=== PATIENT | female | born 1980 | race American Indian/Alaskan Native ===

== ENCOUNTER 2017-12-25 05:26 | Inpatient (IN) | payer MEDICAID ==
[2017-12-25 05:26] VITALS: BMI 36.0
[2017-12-25] MEDS ORDERED: Sodium Chloride 0.9% 500 ML IV ONE (06:10)
--- NOTE | 2017-12-25 06:10 | C.PDOC ---
History Of Present Illness 37 year old female presents to the ED complaining of intermittent chest pain. She reports that pain started 1 week ago as epigastric pain radiating to lower chest, then to her back for the past week. Tonight felt chest pressure, right greater than left, and back pain. Also notes one episode of vomiting prior to arrival. Denies SOB. No recent travel. No use of oral contraceptives. Time Seen by Provider: 12/25/17 06:01 Chief Complaint (Nursing): Chest Pain History Per: Patient History/Exam Limitations: no limitations Onset/Duration Of Symptoms: Days Current Symptoms Are (Timing): Still Present Severity: Moderate Quality: Pressure Recent travel outside of the [place]: No Past Medical History Reviewed: Historical Data, Nursing Documentation, Vital Signs Vital Signs: Last Vital Signs Temp 97.6 F 12/25/17 05:40 Pulse 80 12/25/17 06:35 Resp 16 12/25/17 05:40 BP 115/75 12/25/17 05:40 Pulse Ox 100 12/25/17 06:45 - Medical History PMH: Anxiety, Asthma, Depression, HTN Denies: Chronic Kidney Disease Surgical History: Tonsillectomy - [facility] Procedures OTHER SKIN & SUBQ I D (06/23/14) TONSILLECTOMY (04/12/14) Family History: States: No Known Family Hx - Social History Hx Tobacco Use: No Hx Alcohol Use: Yes Hx Substance Use: No - Immunization History Hx Tetanus Toxoid Vaccination: No Hx Influenza Vaccination: No Hx Pneumococcal Vaccination: No Review Of Systems Constitutional: Negative for: Fever, Chills Cardiovascular: Positive for: Chest Pain. Negative for: Palpitations Respiratory: Negative for: Cough, Shortness of Breath, Pleuritic Pain Gastrointestinal: Positive for: Nausea, Vomiting. Negative for: Abdominal Pain , Diarrhea Genitourinary: Negative for: Dysuria, Hematuria Musculoskeletal: Positive for: Back Pain Skin: Negative for: Rash Neurological: Negative for: Headache, Dizziness Physical Exam - Physical Exam Appears: Non-toxic, No Acute Distress Skin: Normal Color, Warm, Dry Head: Atraumatic, Normacephalic Eye(s): bilateral: Normal Inspection, PERRL, EOMI Oral Mucosa: Moist Neck: Normal ROM, Supple Chest: Symmetrical, No Tenderness, Other (No reproducible chest wall tenderness) Cardiovascular: Rhythm Regular (Rate Regular) Respiratory: Normal Breath Sounds, No Rales, No Rhonchi, No Wheezing Gastrointestinal/Abdominal: Normal Exam, Soft Back: Normal Inspection, No CVA Tenderness Extremity: Normal ROM, No Deformity Neurological/Psych: Oriented x3, Normal Speech, Other (Anxious affect) Gait: Steady ED Course And Treatment - Laboratory Results Result Diagrams: 12/25/17 06:33 12/25/17 06:33 ECG: Interpreted By Me, Viewed By Me Interpretation Of ECG: Sinus rhythm at 72 bpm, left atrial enlargement, nonspecific ST-T waves changes. O2 Sat by Pulse Oximetry: 100 (RA) Pulse Ox Interpretation: Normal Progress Note: Pt remains stable , still with midstrtnal pain, no resp distress. Pt pending labs , s/o for disposition Disposition Counseled Patient/Family Regarding: Diagnosis, Need For Followup, Rx Given - Disposition Disposition Time: 06:08 Condition: STABLE Forms: [facility] (Kyrgyz) - Clinical Impression Clinical Impression: Chest pain - Scribe Statement The provider has reviewed the documentation as recorded by the Scribe (John Licea) All medical record entries made by the Scribe were at my direction and personally dictated by me. I have reviewed the chart and agree that the record accurately reflects my personal performance of the history, physical exam, medical decision making, and the department course for this patient. I have also personally directed, reviewed, and agree with the discharge instructions and disposition. Physician Patient Turnover Patient Signed Over To: Shannon Maddox Handoff Comments: pending labs and disposition
--- NOTE | 2017-12-25 06:12 | C.PDOC ---
History Of Present Illness 37 year old female presents to the ED complaining of intermittent chest pain. She reports that pain started 1 week ago as epigastric pain radiating to lower chest, then to her back for the past week. Tonight felt chest pressure, right greater than left, and back pain. Also notes one episode of vomiting prior to arrival. Denies SOB. No recent travel. No use of oral contraceptives. Time Seen by Provider: 12/25/17 06:01 Chief Complaint (Nursing): Chest Pain History Per: Patient History/Exam Limitations: no limitations Onset/Duration Of Symptoms: Days Current Symptoms Are (Timing): Still Present Quality: Pressure Recent travel outside of the [place]: No Past Medical History Reviewed: Historical Data, Nursing Documentation, Vital Signs Vital Signs: Last Vital Signs Temp 97.6 F 12/25/17 05:40 Pulse 79 12/25/17 05:40 Resp 16 12/25/17 05:40 BP 115/75 12/25/17 05:40 Pulse Ox 100 12/25/17 05:40 - Medical History PMH: Anxiety, Asthma, Depression, HTN Denies: Chronic Kidney Disease Surgical History: Tonsillectomy - [facility] Procedures OTHER SKIN & SUBQ I D (06/23/14) TONSILLECTOMY (04/12/14) Family History: States: No Known Family Hx - Social History Hx Tobacco Use: No Hx Alcohol Use: Yes Hx Substance Use: No - Immunization History Hx Tetanus Toxoid Vaccination: No Hx Influenza Vaccination: No Hx Pneumococcal Vaccination: No Review Of Systems Constitutional: Negative for: Fever, Chills ENT: Negative for: Ear Pain, Throat Pain Cardiovascular: Positive for: Chest Pain Respiratory: Negative for: Cough, Shortness of Breath Gastrointestinal: Negative for: Nausea, Vomiting, Abdominal Pain, Diarrhea Musculoskeletal: Positive for: Back Pain Skin: Negative for: Rash Neurological: Negative for: Headache Physical Exam - Physical Exam Appears: Non-toxic, No Acute Distress Skin: Normal Color, Warm, Dry Head: Atraumatic, Normacephalic Eye(s): bilateral: Normal Inspection, PERRL, EOMI Oral Mucosa: Moist Chest: Symmetrical, Other (No reproducible chest wall tenderness ) Cardiovascular: Rhythm Regular (Rate Regular) Respiratory: Normal Breath Sounds, No Rales, No Rhonchi, No Wheezing Gastrointestinal/Abdominal: Normal Exam, Soft, No Tenderness Back: Normal Inspection Extremity: Normal ROM, No Deformity Neurological/Psych: Oriented x3, Normal Speech Gait: Steady ED Course And Treatment ECG: Interpreted By Me, Viewed By Me Interpretation Of ECG: Sinus rhythm at 72 bpm, left atrial enlargement, nonspecific ST-T waves changes. O2 Sat by Pulse Oximetry: 100 (RA) Pulse Ox Interpretation: Normal Disposition - Disposition Forms: [facility] (Sinhala) - Scribe Statement The provider has reviewed the documentation as recorded by the Scribe All medical record entries made by the Scribe were at my direction and personally dictated by me. I have reviewed the chart and agree that the record accurately reflects my personal performance of the history, physical exam, medical decision making, and the department course for this patient. I have also personally directed, reviewed, and agree with the discharge instructions and disposition.
[2017-12-25] MEDS ORDERED: Sodium Chloride 0.9% 250 ML IV ONE (06:32)
[2017-12-25 06:37] LABS: BASO % 0.6 % (0.0-2.0); EOS # 0.2 K/uL (0.0-0.7); EOS % 2.9 % (0.0-4.0); HEMOGLOBIN 11.8 g/dL (11.0-16.0); LYMPH # 1.6 K/uL (1.0-4.3); LYMPH % 28.3 % (20.0-40.0); MEAN CELL VOLUME 89.3 fL (81.0-99.0); MEAN CORPUSCULAR HEMOGLOBIN 29.7 pg (27.0-31.0); MEAN CORPUSCULAR HGB CONC 33.3 g/dL (33.0-37.0); MEAN PLATELET VOLUME 7.6 fL (7.2-11.7); MONO # 0.6 K/uL (0.0-0.8); MONO % 11.1 % (0.0-10.0); NEUT # 3.3 K/uL (1.8-7.0); NEUT % 57.1 % (50.0-75.0); NRBC % 0.1 % (0.0-2.0); RBC 3.98 Mil/uL (3.80-5.20); RED CELL DISTRIBUTION WIDTH 12.8 % (11.5-14.5); WHITE BLOOD COUNT 5.8 K/uL (4.8-10.8)
[2017-12-25 06:48] LABS: ALBUMIN 3.8 g/dL (3.5-5.0); ALT/SGPT 19 U/L (9-52); AST/SGOT 15 U/L (14-36); BLOOD UREA NITROGEN 14 mg/dL (7-17); CALCIUM 8.3 mg/dl (8.6-10.4); GFR AFRICAN-AMERICAN > 60; GFR NON-AFRICAN AMERICAN > 60
[2017-12-25] MEDS ORDERED: Morphine 4 MG/ML VIAL ONE ×2 (07:45→15:27)
--- NOTE | 2017-12-25 07:52 | RAD ---
Chest x-ray single frontal view History: Chest pain. Comparison: 06/04/2016 Findings: No focal infiltrate or effusion. Heart size within normal limits. Impression: No focal infiltrate or effusion.
[2017-12-25] MEDS ORDERED: Iodixanol 320 MG/ML 100 ML BOTTLE IV ONE (07:57)
[2017-12-25 08:54] LABS: HCG,QUALITATIVE URINE NEGATIVE (NEGATIVE)
[2017-12-25 09:04] LABS: SQUAMOUS EPITHIAL 5 /hpf (0-5); URINE BACTERIA OCC (<OCC); URINE BILIRUBIN NEGATIVE (NEGATIVE); URINE BLOOD 1+ (NEGATIVE); URINE CLARITY Hazy (Clear); URINE COLOR Yellow (YELLOW); URINE GLUCOSE (UA) NORMAL (Normal); URINE NITRATE POSITIVE (NEGATIVE); URINE PROTEIN 1+ mg/dL (NEGATIVE); URINE UROBILINOGEN NORMAL mg/dL (0.2-1.0)
[2017-12-25 09:08] LABS: URINE LEUKOCYTE ESTERASE 1+ Leu/uL (Negative)
--- NOTE | 2017-12-25 09:36 | CT ---
CT chest pulmonary angiogram History: Chest pain. Elevated D-dimer. Comparison: None available. Technique: Multiple contiguous axial images were performed through the chest utilizing pulmonary embolism protocol with the use of intravenous contrast. Subsequently, sagittal and coronal reformatted images were obtained. In addition, coronal and sagittal MIPS reformatted images were obtained. This CT exam was performed using one or more of the following dose reduction techniques: Automated exposure control, adjustment of the mA and/or kV according to patient size, and/or use of iterative reconstruction technique. Findings: Study somewhat limited secondary to suboptimal contrast timing bolus as well as large field of view and patient motion. No evidence of gross central acute pulmonary embolism. More limited evaluation of the segmental and subsegmental branches. Right lung: Grossly clear. Left lung: Grossly clear. Trachea thru central airways are patent. No significant axillary adenopathy. Heterogeneity of the thyroid. No significant axillary adenopathy. No pleural or pericardial effusion. Liver and gallbladder appear preserved. Spleen appears preserved. Adrenal glands appear preserved. Pancreas appears preserved. Kidneys appear preserved. Osseous structures are preserved. Impression: Study somewhat limited secondary to suboptimal contrast timing bolus as well as large field of view and patient motion. No evidence of gross central acute pulmonary embolism. More limited evaluation of the segmental and subsegmental branches.
[2017-12-25] MEDS ORDERED: HYDROmorphone 0.5 mg/0.5 ml ISec IVP STA (09:38)
[2017-12-25] MEDS ORDERED: HYDROmorphone 0.5 mg/0.5 ml ISec ONE (09:49)
[2017-12-25] MEDS ORDERED: Dextrose 50% SYRINGE Inj (50 ml) IV PRN (10:43)
[2017-12-25] MEDS ORDERED: Glucagon Recombinant 1 mg Inj IM PRN (10:43)
--- NOTE | 2017-12-25 11:18 | CP.PCM.HP ---
<Luis Kirk - Last Filed: 12/25/17 19:34> History of Present Illness - History of Present Illness History of Present Illness: PGY1 H+P for Dr. Viridiana Ibarra CC: Abdominal, chest, and back pain A 37 year old AA female with a PMH of DM2, HTN, Narcolepsy, and Asthma, and possible SCT or SCD presents to the ED today morning with abdominal pain radiating to her chest and back. The patient states that she woke up at 4am with abdominal and chest pain that was unlike ever before. She states that on Tuesday, the pain was worsening and by Tuesday it was at it's worst, coming and going intermittently. She states that she's had abdominal pain for months and has been seeing a GI doctor, Dr. Briones, for it who gave her Zantac and scheduled for an EGD soon. The patient states that she drank 1/2 cup of Guinness on Tuesday afternoon and that it may have prompted her worsening abdominal pain. She describes her abdominal pain as "her stomach eating itself" , and currently her pain is an 8/10 from a 10/10 from onset at 4am. She also describes an associated dyspnea when she lays down that does not get better with different positioning. She states that she last used her Albuterol last night due to her SOB when laying down. The patient has come to [facility] before for similar episodes but does not remember her work up for diagnosis. Her last bowel movement was last night, and she was able to eat 3 meals on Tuesday and states that she took all her medications Tuesday night. On ROS, she admits to sleep changes secondary to pain, SOB, palpitations (this morning) , orthopnea, chest pain, decrease in appetite, vomiting (secondary to oral contrast given in ED), diffuse abdominal pain, urinary frequency, urinary urgency, joint pains (bilateral knees and elbows), and dizziness. She denies headache, vision/hearing changes, cough, diarrhea, constipation, rashes, polyuria, depression or anxiety. US in the ED showed gallstones. 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 Call [facility] ) and [facility] ) Adderall 30 mg qd and 10 mg TID (total 60mg) Zantac PO qd Ambien 10 mg qd Albuterol PRN (last used Tuesday night, uses it on a monthly basis) Provigil 200 mg TID Metformin 500 BID Atenolol 100 mg qd Hyzaar qd Present on Admission - Present on Admission Any Indicators Present on Admission: No Review of Systems - Review of Systems All systems: reviewed and no additional remarkable complaints except (as HPI) Past Patient History - Infectious Disease Hx of Infectious Diseases: None - Past Medical History & Family History Past Medical History?: Yes - Past Social History Smoking Status: Never Smoked - CARDIAC Hx Hypertension: Yes - PULMONARY Hx Asthma: Yes - NEUROLOGICAL Hx Neurological Disorder: Yes Other/Comment: NARCOLEPSY - HEENT Other/Comment: CHRONIC TONSILLITIS; Wears contacts - RENAL Hx Chronic Kidney Disease: No - ENDOCRINE/METABOLIC Hx Endocrine Disorders: Yes Hx Diabetes Mellitus Type 2: Yes Other/Comment: pre DM - GENITOURINARY/GYNECOLOGICAL Hx Urinary Tract Infection: Yes - PSYCHIATRIC Hx Anxiety: Yes Hx Depression: Yes Hx Substance Use: No - SURGICAL HISTORY Hx Tonsillectomy: Yes - ANESTHESIA Hx Anesthesia: Yes Hx Anesthesia Reactions: No Hx Malignant Hyperthermia: No Meds Allergies/Adverse Reactions: Allergies Allergy/AdvReac Type Severity Reaction Status Date / Time latex Allergy Verified 12/25/17 05:47 Physical Exam - Constitutional Appears: Non-toxic, Other (Obese, lethargic (recently given dilaudid) ) - Head Exam Head Exam: ATRAUMATIC, NORMOCEPHALIC - Eye Exam Eye Exam: EOMI, Normal appearance - ENT Exam ENT Exam: Mucous Membranes Moist - Neck Exam Neck exam: Positive for: Full Rom. Negative for: Lymphadenopathy, Thyromegaly - Respiratory Exam Respiratory Exam: Clear to Auscultation Bilateral, NORMAL BREATHING PATTERN. absent: Accessory Muscle Use, Rales, Rhonchi, Wheezes, Respiratory Distress - Cardiovascular Exam Cardiovascular Exam: REGULAR RHYTHM, +S1, +S2. absent: Diastolic murmur, JVD, Systolic Murmur - GI/Abdominal Exam GI & Abdominal Exam: Guarding (epigastric), Normal Bowel Sounds, Soft, Tenderness (epigastric). absent: Distended, Firm, Hernia, Rebound, Rigid Additional comments: Difficult to truly assess due to patient recently being given pain medicine at time of exam. - Rectal Exam Additional comments: Heme occult negative. - Extremities Exam Extremities exam: Positive for: pedal pulses present. Negative for: calf tenderness, pedal edema - Neurological Exam Neurological exam: Alert, Oriented x3 Additional comments: lethargic but believed to be secondary to dilaudid being given. ED doctor/ nursing staff reported lethargy started after administration of medication. - Psychiatric Exam Additional comments: lethargic. - Skin Skin Exam: Dry, Warm Results - Vital Signs Recent Vital Signs: Last Vital Signs Temp 97.6 F 12/25/17 05:40 Pulse 80 12/25/17 06:35 Resp 16 12/25/17 05:40 BP 115/75 12/25/17 05:40 Pulse Ox 100 12/25/17 07:08 - Labs Result Diagrams: 12/25/17 06:33 12/25/17 06:33 Labs: Laboratory Results - last 24 hr 12/25/17 12/25/17 12/25/17 06:33 06:33 06:33 WBC 5.8 RBC 3.98 Hgb 11.8 Hct 35.6 MCV 89.3 MCH 29.7 MCHC 33.3 RDW 12.8 Plt Count 256 MPV 7.6 Neut % (Auto) 57.1 Lymph % (Auto) 28.3 Motley % (Auto) 11.1 H Eos % (Auto) 2.9 Baso % (Auto) 0.6 Neut # (Auto) 3.3 Lymph # (Auto) 1.6 Motley # (Auto) 0.6 Eos # (Auto) 0.2 Baso # (Auto) 0.0 D-Dimer, Quantitative 411 H Sodium 134 Potassium 3.3 L Chloride 95 L Carbon Dioxide 31 H Anion Gap 12 BUN 14 Creatinine 0.7 Est GFR ( Amer) > 60 Est GFR (Non-Af Amer) > 60 Random Glucose 120 H Calcium 8.3 L Total Bilirubin 0.3 AST 15 ALT 19 Alkaline Phosphatase 77 Troponin I < 0.0120 Total Protein 7.8 Albumin 3.8 Globulin 4.0 H Albumin/Globulin Ratio 1.0 Beta HCG, Quant Urine Color Urine Clarity Urine pH Ur Specific Eldridge Urine Protein Urine Glucose (UA) Urine Ketones Urine Blood Urine Nitrate Urine Bilirubin Urine Urobilinogen Ur Leukocyte Esterase Urine WBC (Auto) Urine RBC (Auto) Ur Squamous Epith Cells Urine Bacteria Urine HCG, Qual 12/25/17 12/25/17 07:47 08:44 WBC RBC Hgb Hct MCV MCH MCHC RDW Plt Count MPV Neut % (Auto) Lymph % (Auto) Motley % (Auto) Eos % (Auto) Baso % (Auto) Neut # (Auto) Lymph # (Auto) Motley # (Auto) Eos # (Auto) Baso # (Auto) D-Dimer, Quantitative Sodium Potassium Chloride Carbon Dioxide Anion Gap BUN Creatinine Est GFR ( Amer) Est GFR (Non-Af Amer) Random Glucose Calcium Total Bilirubin AST ALT Alkaline Phosphatase Troponin I Total Protein Albumin Globulin Albumin/Globulin Ratio Beta HCG, Quant < 2.39 Urine Color Yellow Urine Clarity Hazy Urine pH 5.0 Ur Specific Eldridge 1.030 Urine Protein 1+ H Urine Glucose (UA) Normal Urine Ketones Trace Urine Blood 1+ H Urine Nitrate Positive H Urine Bilirubin Negative Urine Urobilinogen Normal Ur Leukocyte Esterase 1+ H Urine WBC (Auto) 10 H Urine RBC (Auto) 8 H Ur Squamous Epith Cells 5 Urine Bacteria Occ H Urine HCG, Qual Negative Assessment & Plan - Assessment and Plan (Free Text) Plan: Chest/Abdominal Pain - possible Sickle Cell Crisis Believed to possibly due to sickle cell crisis since patient's parents both were positive for the sickle cell trait. Brother secondary to sickle cell at age 21. Patient has never been worked up for sickle cell. Heme/Onc consulted, Dr. Isaak Mendoza Cardio consulted, Dr. Bhatia Chest CTA - Study somewhat limited secondary to suboptimal contrast timing bolus as well as large field of view and patient motion. No evidence of gross central acute pulmonary embolism. More limited evaluation of the segmental and subsegmental branches. Abdominal US - 1.) Prominent liver with diffuse increased echogenicity of the hepatic parenchymal cortex suggestive for fatty infiltration versus hepatic parenchymal disease. Clinical correlation. 2.) Cholelithiasis. 3.)Somewhat limited evaluation of the pancreas. Transvag US - Fibroid uterus. Prominent endometrium measuring up to 1.2 centimeters. Small amount of free fluid within the pelvic cul-de-sac. ECHO f/u Alcohol <10 Amylase 65 Lipase 23 Trop negative x3 Lactic Acid 1.2 TSH f/u Free T4 f/u Hepatitis Panel f/u HIV screen f/u Mag f/u Phos f/u Hemoglobinopathy eval f/u Peripheral Smear f/u Hemoglobin Electrophoresis f/u Morphine 2mg IVP q6h PRN for mod. pain Morphine 4mg IVP q6h PRN for severe pain Zofran 4mg IVP q6h PRN NS @150mL/hr x 1 L, then NS @100mL/hr UTI UA - protein 1+, Blood 1+, Nitrates positive, Leuko Olive 1+, Bacteria Occ Urine Culture - f/u Rocephin 1gm IVPB q24h Florastor 250mg PO BID DM2 ISS ACHS- high HgbA1c - f/u Holding home Metformin due to possible side effect of lactic acidosis in setting of possible sickle cell crisis. HTN Atenolol 100mg daily Losartan 100mg PO daily Holding home HCTZ due to hx of diabetes and dehydration in setting of possible sickle cell crisis. Narcolepsy Need to call pharmacy and confirm medications for Narcolepsy. See medications listed below Asthma Duonebs 3mL q6h prn Prophylactic Care DVT - score 1 - SCDs only - anticoag not indicated GI - Pepcid 20mg PO daily Heart Healthy, Na+ 2g, Carbohydrate Consistent diet Call [facility] ) and [facility] ) - believed medications and dosages Adderall 30 mg qd and 10 mg TID (total 60mg) Zantac PO qd Ambien 10 mg qd Albuterol PRN (last used Tuesday night, uses it on a monthly basis) Provigil 200 mg TID Metformin 500 BID Atenolol 100 mg qd Hyzaar (losartan/HCTZ) qd Case discussed with Dr. Viridiana Kirk PGY1 <Osvaldo Ibarra - Last Filed: 12/25/17 21:15> Results - Vital Signs Recent Vital Signs: Last Vital Signs Temp 98.4 F 12/25/17 20:00 Pulse 60 12/25/17 20:00 Resp 16 12/25/17 20:00 BP 124/77 12/25/17 20:00 Pulse Ox 100 12/25/17 20:00 - Labs Result Diagrams: 12/25/17 06:33 12/25/17 06:33 Labs: Laboratory Results - last 24 hr 12/25/17 12/25/17 12/25/17 06:33 06:33 06:33 WBC 5.8 RBC 3.98 Hgb 11.8 Hct 35.6 MCV 89.3 MCH 29.7 MCHC 33.3 RDW 12.8 Plt Count 256 MPV 7.6 Neut % (Auto) 57.1 Lymph % (Auto) 28.3 Motley % (Auto) 11.1 H Eos % (Auto) 2.9 Baso % (Auto) 0.6 Neut # (Auto) 3.3 Lymph # (Auto) 1.6 Motley # (Auto) 0.6 Eos # (Auto) 0.2 Baso # (Auto) 0.0 D-Dimer, Quantitative 411 H Sodium 134 Potassium 3.3 L Chloride 95 L Carbon Dioxide 31 H Anion Gap 12 BUN 14 Creatinine 0.7 Est GFR ( Amer) > 60 Est GFR (Non-Af Amer) > 60 POC Glucose (mg/dL) Random Glucose 120 H Lactic Acid Calcium 8.3 L Total Bilirubin 0.3 AST 15 ALT 19 Alkaline Phosphatase 77 Troponin I < 0.0120 Total Protein 7.8 Albumin 3.8 Globulin 4.0 H Albumin/Globulin Ratio 1.0 Amylase Lipase Beta HCG, Quant Urine Color Urine Clarity Urine pH Ur Specific Eldridge Urine Protein Urine Glucose (UA) Urine Ketones Urine Blood Urine Nitrate Urine Bilirubin Urine Urobilinogen Ur Leukocyte Esterase Urine WBC (Auto) Urine RBC (Auto) Ur Squamous Epith Cells Urine Bacteria Urine HCG, Qual Alcohol, Quantitative Influenza Typ A,B (EIA) 12/25/17 12/25/17 12/25/17 07:47 08:44 11:31 WBC RBC Hgb Hct MCV MCH MCHC RDW Plt Count MPV Neut % (Auto) Lymph % (Auto) Motley % (Auto) Eos % (Auto) Baso % (Auto) Neut # (Auto) Lymph # (Auto) Motley # (Auto) Eos # (Auto) Baso # (Auto) D-Dimer, Quantitative Sodium Potassium Chloride Carbon Dioxide Anion Gap BUN Creatinine Est GFR ( Amer) Est GFR (Non-Af Amer) POC Glucose (mg/dL) Random Glucose Lactic Acid Calcium Total Bilirubin AST ALT Alkaline Phosphatase Troponin I < 0.0120 Total Protein Albumin Globulin Albumin/Globulin Ratio Amylase 65 Lipase 23 Beta HCG, Quant < 2.39 Urine Color Yellow Urine Clarity Hazy Urine pH 5.0 Ur Specific Eldridge 1.030 Urine Protein 1+ H Urine Glucose (UA) Normal Urine Ketones Trace Urine Blood 1+ H Urine Nitrate Positive H Urine Bilirubin Negative Urine Urobilinogen Normal Ur Leukocyte Esterase 1+ H Urine WBC (Auto) 10 H Urine RBC (Auto) 8 H Ur Squamous Epith Cells 5 Urine Bacteria Occ H Urine HCG, Qual Negative Alcohol, Quantitative < 10 Influenza Typ A,B (EIA) 12/25/17 12/25/17 12/25/17 12:49 13:44 15:34 WBC RBC Hgb Hct MCV MCH MCHC RDW Plt Count MPV Neut % (Auto) Lymph % (Auto) Motley % (Auto) Eos % (Auto) Baso % (Auto) Neut # (Auto) Lymph # (Auto) Motley # (Auto) Eos # (Auto) Baso # (Auto) D-Dimer, Quantitative Sodium Potassium Chloride Carbon Dioxide Anion Gap BUN Creatinine Est GFR ( Amer) Est GFR (Non-Af Amer) POC Glucose (mg/dL) 143 H Random Glucose Lactic Acid 1.2 Calcium Total Bilirubin AST ALT Alkaline Phosphatase Troponin I Total Protein Albumin Globulin Albumin/Globulin Ratio Amylase Lipase Beta HCG, Quant Urine Color Urine Clarity Urine pH Ur Specific Eldridge Urine Protein Urine Glucose (UA) Urine Ketones Urine Blood Urine Nitrate Urine Bilirubin Urine Urobilinogen Ur Leukocyte Esterase Urine WBC (Auto) Urine RBC (Auto) Ur Squamous Epith Cells Urine Bacteria Urine HCG, Qual Alcohol, Quantitative Influenza Typ A,B (EIA) Negative for flu a/b 12/25/17 12/25/17 16:23 17:52 WBC RBC Hgb Hct MCV MCH MCHC RDW Plt Count MPV Neut % (Auto) Lymph % (Auto) Motley % (Auto) Eos % (Auto) Baso % (Auto) Neut # (Auto) Lymph # (Auto) Motley # (Auto) Eos # (Auto) Baso # (Auto) D-Dimer, Quantitative Sodium Potassium Chloride Carbon Dioxide Anion Gap BUN Creatinine Est GFR ( Amer) Est GFR (Non-Af Amer) POC Glucose (mg/dL) 110 Random Glucose Lactic Acid Calcium Total Bilirubin AST ALT Alkaline Phosphatase Troponin I < 0.0120 Total Protein Albumin Globulin Albumin/Globulin Ratio Amylase Lipase Beta HCG, Quant Urine Color Urine Clarity Urine pH Ur Specific Eldridge Urine Protein Urine Glucose (UA) Urine Ketones Urine Blood Urine Nitrate Urine Bilirubin Urine Urobilinogen Ur Leukocyte Esterase Urine WBC (Auto) Urine RBC (Auto) Ur Squamous Epith Cells Urine Bacteria Urine HCG, Qual Alcohol, Quantitative Influenza Typ A,B (EIA) Attending/Attestation - Attestation I have personally seen and examined this patient.: Yes I have fully participated in the care of the patient.: Yes I have reviewed all pertinent clinical information: Yes Notes (Text): 12/25/17 21:10 Patient was seen shortly after resident in Emergency Room 8A. History, Physical, Assessment and Plan were gone over with the resident. U/S Abdomen/Pelvis (done as patient already received contrast for CT Angio Chest and ER did NOT get CT Abdomen/Pelvis with the CT Angio Chest) showed the following: Fibroid Uterus Prominent Endometrium Prominent Liver with diffuse increased echogenecity of the hepatic parenchymal cortex suggestive of fatty infiltration vs hepatic parenchymal disease Medicine Team please do the followin). Obtain CT Abdomen/Pelvis with PO and IV contrast should the Abdominal Pain persist by morning of 12/26/17. 2). Call the above Pharmacies (as they were closed today) to confirm the patient 's medications especially for her history of Narcolepsy (Adderell and Provigil) and once confirmed then order the Adderell and Provigil Patient's approved contacts are her [id number] Jackelyn ([phone]) who was present at the time of my exam and her Brother Nomi [phone]. Osvaldo Ibarra D.O.
[2017-12-25 11:50] LABS: AMYLASE 65 U/L (30-110); LIPASE 23 U/L (23-300)
[2017-12-25] MEDS ORDERED: Sodium Chloride 0.9% 1,000 ML IV ONE (11:51)
[2017-12-25] MEDS ORDERED: Sodium Chloride 0.9% 1,000 ML ONE ×2 (12:19→19:50)
[2017-12-25] MEDS ORDERED: cefTRIAXone IV 1 gm in Dextros 50 ML IVPB ONE (12:19)
--- NOTE | 2017-12-25 12:39 | US ---
Abdominal ultrasound History: Abdominal pain. Comparison: None available. Technique: Real-time sonography was performed through the abdomen. Findings: Liver: Prominent. 18.4 centimeters length. Increased echogenicity of the hepatic parenchymal cortex suggestive for fatty infiltration versus hepatic parenchymal disease. Correlation. Gallbladder: Cholelithiasis with gallbladder calculus measuring up to 1.6 centimeters. Normal gallbladder wall thickness of 2 millimeters. Negative sonographic Armstrong's sign. Common bile duct measures 4.8 millimeters, within normal limits. Limited evaluation of the pancreas. Spleen measures 6.5 centimeters in length, within normal limits. Visualized aorta and IVC are preserved. Right kidney: 10.5 x 4.9 x 4.9 centimeters. No calculi or hydronephrosis. Left Kidney: 10.5 x 5.7 x 5.8 centimeters. No calculi or hydronephrosis. Impression: Prominent liver with diffuse increased echogenicity of the hepatic parenchymal cortex suggestive for fatty infiltration versus hepatic parenchymal disease. Clinical correlation. Cholelithiasis. Somewhat limited evaluation of the pancreas.
--- NOTE | 2017-12-25 12:42 | US ---
Pelvic ultrasound History: Pelvic pain. Comparison: None available. Technique: Real-time sonography was performed through the pelvis utilizing transabdominal and transvaginal techniques. Findings: Uterus: 8.2 x 4.9 x 5.6 centimeters. Heterogeneous echotexture. Retroverted. Heterogeneous lesions within the uterus suggestive for possible fibroid lesions including a subserosal lesion measuring 1.0 x 0.7 x 0.9 centimeters and a submucosal lesion measuring 2.3 x 2.3 x 2.3 centimeters. Prominent endometrium measuring up to 1.2 centimeters. Small amount of free fluid within the pelvic cul-de-sac. Right ovary: 3.9 x 1.5 x 3.6 centimeters. Normal. Left ovary: 2.2 x 1.9 x 1.8 centimeters. Normal flow. Impression: Fibroid uterus. Prominent endometrium measuring up to 1.2 centimeters. Small amount of free fluid within the pelvic cul-de-sac.
[2017-12-25] MEDS: (Novolin R) Insulin Human Regular 100 units/ml vial SC SCH ×3 (13:47→22:00)
[2017-12-25] MEDS ORDERED: Albuterol-Ipratrop 3 mg / 0.5 (3 ml) UD INH PRN (14:00)
[2017-12-25] MEDS ORDERED: Morphine 4 MG/ML VIAL IVP PRN ×2 (14:53→14:54)
[2017-12-25] MEDS: Saccharomyces Boulardi 250 mg Cap PO SCH (17:15)
[2017-12-25] MEDS: Sodium Chloride 0.9% 1,000 ML IV SCH (19:15)
[2017-12-26] MEDS ORDERED: Sodium Chloride 0.9% 1,000 ML ONE (05:15)
[2017-12-26 06:38] LABS: MCH 28.8 pg (27.0-33.0); MCV 90.4 fL (80.0-100.0)
[2017-12-26] MEDS: Sodium Chloride 0.9% 1,000 ML IV SCH ×3 (07:21→22:20)
[2017-12-26] MEDS: (Novolin R) Insulin Human Regular 100 units/ml vial SC SCH ×4 (08:00→22:16)
[2017-12-26 08:30] LABS: HDL CHOLESTEROL 46 mg/dL (30-70); MAGNESIUM 1.8 mg/dL (1.6-2.3)
[2017-12-26 08:40] LABS: LDL CHOLESTEROL 80 mg/dL (0-129)
[2017-12-26 09:01] LABS: HEPATITIS B SURFACE AG Negative (NEGATIVE)
[2017-12-26 09:07] LABS: HEPATITIS A IGM NEGATIVE (NEGATIVE); HEPATITIS B CORE AB NEGATIVE (NEGATIVE)
[2017-12-26 09:18] LABS: HEPATITIS C ANTIBODY NEGATIVE (NEGATIVE)
[2017-12-26] MEDS: Saccharomyces Boulardi 250 mg Cap PO SCH ×2 (10:23→20:48)
[2017-12-26 11:21] LABS: SICKLE CELL SCREEN NEGATIVE (NEGATIVE)
[2017-12-26 14:27] LABS: BASO # 0.1 K/uL (0.0-0.2); BASO % 0.9 % (0.0-2.0); EOS % 0.2 % (0.0-4.0); HEMOGLOBIN 11.1 g/dL (11.0-16.0); LYMPH # 1.3 K/uL (1.0-4.3); LYMPH % 16.2 % (20.0-40.0); MEAN CELL VOLUME 89.5 fL (81.0-99.0); MEAN CORPUSCULAR HEMOGLOBIN 29.6 pg (27.0-31.0); MEAN CORPUSCULAR HGB CONC 33.1 g/dL (33.0-37.0); MEAN PLATELET VOLUME 8.6 fL (7.2-11.7); MONO # 0.8 K/uL (0.0-0.8); MONO % 9.4 % (0.0-10.0); NEUT % 73.3 % (50.0-75.0); NRBC % 0.1 % (0.0-2.0); PLATELET COUNT 229 K/uL (130-400); RBC 3.75 Mil/uL (3.80-5.20); RED CELL DISTRIBUTION WIDTH 12.9 % (11.5-14.5); WHITE BLOOD COUNT 8.2 K/uL (4.8-10.8)
[2017-12-26 15:09] LABS: ALBUMIN 3.5 g/dL (3.5-5.0); ALT/SGPT 27 U/L (9-52); AST/SGOT 20 U/L (14-36); BLOOD UREA NITROGEN 9 mg/dL (7-17); CALCIUM 8.3 mg/dl (8.6-10.4); GFR AFRICAN-AMERICAN > 60; GFR NON-AFRICAN AMERICAN > 60
--- NOTE | 2017-12-26 15:19 | CP.PCM.PN ---
<Gracie John - Last Filed: 12/26/17 15:14> Subjective - Date & Time of Evaluation Date of Evaluation: 12/26/17 Time of Evaluation: 09:00 - Subjective Subjective: Medicine Note for Hospitalist Service - Dr. Ott Patient was seen and examined at bedside. Patient reports her chest pain has resolved. However she continues with the bandlike abdominal pain, associated with nausea. She attempted to eat breakfast but admitted to abdominal pain after eating. Denied, fever, chills, headache, chest pain, SOB, n/v/d/c, or urinary symptoms. Objective - Vital Signs/Intake and Output Vital Signs (last 24 hours): Temp Pulse Resp BP Pulse Ox 98.7 F 54 L 18 125/67 100 12/26/17 12:39 12/26/17 12:39 12/26/17 12:39 12/26/17 12:39 12/26/17 12:39 - Medications Medications: Current Medications Albuterol/Ipratropium (Duoneb 3 Mg/0.5 Mg (3 Ml) Ud) 3 ml INH RQ6 PRN PRN Reason: Shortness of Breath Last Admin: 12/26/17 04:10 Dose: 3 ml Atenolol (Tenormin) 100 mg PO HS [facility] Last Admin: 12/25/17 22:00 Dose: Not Given Dextrose (Dextrose 50% Inj) 0 ml IV STAT PRN; Protocol PRN Reason: Hypoglycemia Protocol Dextrose (Glutose 15) 0 gm PO ONCE PRN; Protocol PRN Reason: Hypoglycemia Protocol Docusate Sodium (Colace) 100 mg PO BID [facility] Last Admin: 12/26/17 10:23 Dose: 100 mg Famotidine (Pepcid) 20 mg PO DAILY [facility] Last Admin: 12/26/17 10:23 Dose: 20 mg Glucagon (Glucagen Diagnostic Kit) 0 mg IM STAT PRN; Protocol PRN Reason: Hypoglycemia Protocol Ceftriaxone Sodium 1 gm/ (Sodium Chloride) 100 mls @ 100 mls/hr IVPB Q24H [facility] Last Admin: 12/26/17 13:18 Dose: 100 mls/hr Dextrose (Dextrose 5% In Water 1000 Ml) 1,000 mls @ 0 mls/hr IV .Q0M PRN; Protocol; Per Protocol PRN Reason: Hypoglycemia Protocol Sodium Chloride (Sodium Chloride 0.9%) 1,000 mls @ 100 mls/hr IV .Q10H [facility] Last Admin: 12/26/17 07:21 Dose: 100 mls/hr Insulin Human Regular (Novolin R) 0 unit SC ACHS [facility] PRN Reason: Protocol Last Admin: 12/26/17 12:44 Dose: Not Given Losartan Potassium (Cozaar) 100 mg PO DAILY [facility] Last Admin: 12/26/17 10:23 Dose: 100 mg Morphine Sulfate (Morphine) 2 mg IVP Q6H PRN PRN Reason: Pain, moderate (4-7) Last Admin: 12/25/17 20:04 Dose: 2 mg Morphine Sulfate (Morphine) 4 mg IVP Q6H PRN PRN Reason: Pain, severe (8-10) Last Admin: 12/25/17 15:24 Dose: 4 mg Ondansetron HCl (Zofran Inj) 4 mg IVP Q6H PRN PRN Reason: Nausea/Vomiting Last Admin: 12/25/17 20:04 Dose: 4 mg Potassium Chloride (K-Dur 20 Meq Er Tab) 40 meq PO ONCE ONE Stop: 12/26/17 15:31 Potassium Phos/Sodium Phos (Neutra-Phos) 1 pkt PO BID [facility] Stop: 12/27/17 13:01 Saccharomyces Boulardii (Florastor) 250 mg PO BID [facility] Last Admin: 12/26/17 10:23 Dose: 250 mg - Labs Labs: 12/26/17 11:11 12/26/17 08:02 - Additional Findings Additional findings: - Constitutional Appears: Non-toxic, Other (Obese, lethargic (recently given dilaudid) ) - Head Exam Head Exam: ATRAUMATIC, NORMOCEPHALIC - Eye Exam Eye Exam: EOMI, Normal appearance - ENT Exam ENT Exam: Mucous Membranes Moist - Neck Exam Neck exam: Positive for: Full Rom. Negative for: Lymphadenopathy, Thyromegaly - Respiratory Exam Respiratory Exam: Clear to Auscultation Bilateral, NORMAL BREATHING PATTERN. absent: Accessory Muscle Use, Rales, Rhonchi, Wheezes, Respiratory Distress - Cardiovascular Exam Cardiovascular Exam: REGULAR RHYTHM, +S1, +S2. absent: Diastolic murmur, JVD, Systolic Murmur - GI/Abdominal Exam GI & Abdominal Exam: Normal Bowel Sounds, Soft, Tenderness (epigastric and RUQ) . absent: Distended, Firm, Hernia, Rebound, Rigid Additional comments: NEGATIVE CVA TENDERNESS - Rectal Exam Additional comments: Heme occult negative. - Extremities Exam Extremities exam: Positive for: pedal pulses present. Negative for: calf tenderness, pedal edema - Neurological Exam Neurological exam: Alert, Oriented x3 Additional comments: - Skin Skin Exam: Dry, Warm Assessment and Plan - Assessment and Plan (Free Text) Plan: Abdominal Pain Hx of H.pylori x 5 years ago Amylase 65 Lipase 23 Hepatitis Panel - negative HIV screen - negative F/U abdominal and pelvis CT with PO and IV contrast Imaging: Abdominal US - 1.) Prominent liver with diffuse increased echogenicity of the hepatic parenchymal cortex suggestive for fatty infiltration versus hepatic parenchymal disease. Clinical correlation. 2.) Cholelithiasis. 3.)Somewhat limited evaluation of the pancreas. Transvaginal US - Fibroid uterus. Prominent endometrium measuring up to 1.2 centimeters. Small amount of free fluid within the pelvic cul-de-sac. Chest Pain r/o ACS Less likely Sickle Cell Crisis Heme/Onc consulted, Dr. Isaak Mendoza Cardio consulted, Dr. Bhatia Trop negative x3, EKG: Julio Cesar - no AV Block Hemoglobinopathy eval f/u Peripheral Smear f/u Hemoglobin Electrophoresis f/u Believed to possibly due to sickle cell crisis since patient's parents both were positive for the sickle cell trait. Brother secondary to sickle cell at age 21. Patient has been worked up for sickle cell in her country Negative. Imaging: Chest CTA - Study somewhat limited secondary to suboptimal contrast timing bolus as well as large field of view and patient motion. No evidence of gross central acute pulmonary embolism. More limited evaluation of the segmental and subsegmental branches. ECHO f/u Morphine 2mg IVP q6h PRN for mod. pain Morphine 4mg IVP q6h PRN for severe pain Zofran 4mg IVP q6h PRN NS @150mL/hr x 1 L, then NS @100mL/hr Asymptomatic Bacteriuria UA - protein 1+, Blood 1+, Nitrates positive, Leuko Olive 1+, Bacteria Occ Urine Culture - f/u Meds: Rocephin 1gm IVPB q24h Florastor 250mg PO BID DM2 Accuchecks ISS ACHS- high HgbA1c - 5.9 HTN Atenolol 100mg daily Losartan 100mg PO daily Narcolepsy Called pharmacy, no answer. Will call again. Adderall 30 mg qd and 10 mg TID (total 60mg). Provigil 200 mg TID; [facility] ) Asthma Duonebs 3mL q6h prn Prophylactic Care DVT - score 1 - SCDs only - anticoag not indicated GI - Pepcid 20mg PO daily Heart Healthy, Na+ 2g, Carbohydrate Consistent diet DW Dr. Ott, Gracie John DO, PGY-1 <Charity Ott V - Last Filed: 12/26/17 18:49> Objective - Vital Signs/Intake and Output Vital Signs (last 24 hours): Temp Pulse Resp BP Pulse Ox 98.3 F 80 18 152/81 H 100 12/26/17 15:32 12/26/17 15:32 12/26/17 15:32 12/26/17 15:32 12/26/17 15:32 - Medications Medications: Current Medications Albuterol/Ipratropium (Duoneb 3 Mg/0.5 Mg (3 Ml) Ud) 3 ml INH RQ6 PRN PRN Reason: Shortness of Breath Last Admin: 12/26/17 04:10 Dose: 3 ml Atenolol (Tenormin) 100 mg PO HS [facility] Last Admin: 12/25/17 22:00 Dose: Not Given Dextrose (Dextrose 50% Inj) 0 ml IV STAT PRN; Protocol PRN Reason: Hypoglycemia Protocol Dextrose (Glutose 15) 0 gm PO ONCE PRN; Protocol PRN Reason: Hypoglycemia Protocol Docusate Sodium (Colace) 100 mg PO BID [facility] Last Admin: 12/26/17 10:23 Dose: 100 mg Famotidine (Pepcid) 20 mg PO DAILY [facility] Last Admin: 12/26/17 10:23 Dose: 20 mg Glucagon (Glucagen Diagnostic Kit) 0 mg IM STAT PRN; Protocol PRN Reason: Hypoglycemia Protocol Ceftriaxone Sodium 1 gm/ (Sodium Chloride) 100 mls @ 100 mls/hr IVPB Q24H [facility] Last Admin: 12/26/17 13:18 Dose: 100 mls/hr Dextrose (Dextrose 5% In Water 1000 Ml) 1,000 mls @ 0 mls/hr IV .Q0M PRN; Protocol; Per Protocol PRN Reason: Hypoglycemia Protocol Sodium Chloride (Sodium Chloride 0.9%) 1,000 mls @ 100 mls/hr IV .Q10H [facility] Last Admin: 12/26/17 14:40 Dose: Not Given Insulin Human Regular (Novolin R) 0 unit SC ACHS [facility] PRN Reason: Protocol Last Admin: 12/26/17 17:39 Dose: Not Given Losartan Potassium (Cozaar) 100 mg PO DAILY [facility] Last Admin: 12/26/17 10:23 Dose: 100 mg Morphine Sulfate (Morphine) 2 mg IVP Q6H PRN PRN Reason: Pain, moderate (4-7) Last Admin: 12/25/17 20:04 Dose: 2 mg Morphine Sulfate (Morphine) 4 mg IVP Q6H PRN PRN Reason: Pain, severe (8-10) Last Admin: 12/25/17 15:24 Dose: 4 mg Ondansetron HCl (Zofran Inj) 4 mg IVP Q6H PRN PRN Reason: Nausea/Vomiting Last Admin: 12/26/17 17:03 Dose: 4 mg Potassium Phos/Sodium Phos (Neutra-Phos) 1 pkt PO BID [facility] Stop: 12/27/17 13:01 Saccharomyces Boulardii (Florastor) 250 mg PO BID [facility] Last Admin: 12/26/17 10:23 Dose: 250 mg - Labs Labs: 12/26/17 11:11 12/26/17 08:02 Attending/Attestation - Attestation I have personally seen and examined this patient.: Yes I have fully participated in the care of the patient.: Yes I have reviewed all pertinent clinical information, including history, physical exam and plan: Yes Notes (Text): Patient seen, examined, and case discussed with medical assistant float. Patient seen in [facility] bed 6 in emergency room awaiting bed for the floor. Patient reports she is feeling much better. Patient denies chest pain. Compared to yesterday wherein she had a bilious vomiting she does not have any vomiting today but does report mild abdominal pain. Patient denies flank pain. Patient denies dysuria, hematuria, frequency. Patient reports she has her periods usually first of the month and she is regular. Patient reports family history of sickle cell trait both her father and mother as well as her brother who recently in his early 20s with sickle cell disease. Patient is originally from [place] reports that she's been tested reports no history of sickle cell. Patient does not have any tenderness to palpation over the chest she's able to breathe with ease lung exam is relatively clear. Patient does have mild tenderness to palpation over the abdomen, positive bowel sounds no guarding no rigidity obese habitus. Patient is not . Will order for a CAT scan abdomen pelvis by mouth and IV contrast catheter indication patient's belly. Patient has RA complete abdominal ultrasound yesterday showing a heterogeneous pattern of the liver. Awaiting hemoglobinopathy evaluation. However sickle cell screen is negative. global supply chain vice president has called [facility] pharmacy to come to confirm the medication list. Except for narcolepsy medications are not being prescribed at [facility] pharmacy. Medical student who is also on her case has called [facility] pharmacy about 5 times today however they are unable to be reached to confirm narcolepsy medications. I have spoken [facility] this evening and confirmed the dosing for her narcolepsy. Patient does report history of cataplexy where and anger surprise or acute distress or prompted. Assessment/Plan 1) Chest Pain (resolved) * D-dimer elevated * Chest CTA - Study somewhat limited secondary to suboptimal contrast timing bolus as well as large field of view and patient motion. No evidence of gross central acute pulmonary embolism. More limited evaluation of the segmental and subsegmental branches. * Trop negative x3 * Cardiology: Dr. Bhatia on consult-->awaiting consult * ECHO f/u 2. Abdominal Pain * Alcohol <10 * Amylase 65 * Lipase 23 * Trop negative x3 * pending CT abdomen/pelvis PO and IV contrast reason: abdominal pain * Abdominal US - 1.) Prominent liver with diffuse increased echogenicity of the hepatic parenchymal cortex suggestive for fatty infiltration versus hepatic parenchymal disease. Clinical correlation. 2.) Cholelithiasis. 3.)Somewhat limited evaluation of the pancreas. 3. Sickle Cell? Family History of Sickle Cell Trait * Heme/Onc consulted, Dr. Isaak Mendoza * Sickle cell screen: negative * Pending Hemoglobinpathy evaluation * Patient is on Morphine PRN IV 4. Asymptomatic Bacturia * UA - protein 1+, Blood 1+, Nitrates positive, Leuko Olive 1+, Bacteria Occ * Urine Culture - f/u * Rocephin 1gm IVPB q24h * Florastor 250mg PO BID * pending CT abdomen pelvis PO and IV contrast 5. History of Diabetes Type 2 * ISS ACHS- high * HgbA1c: 5.9 Controlled * Holding home Metformin due to possible side effect of lactic acidosis in setting of possible sickle cell crisis and given two contrast based IV CT scans 6. Hypertension * Atenolol 100mg daily * Losartan 100mg PO daily * Holding home HCTZ due to hx of diabetes and dehydration in setting of possible sickle cell crisis. 7. Narcolepsy * Need to call pharmacy and confirm medications for Narcolepsy. See medications listed below * Resident and medical student have called [facility] and [facility] during the day. * I have spoken with [facility] (Prescriber: Dr. Josesito Chambers 12/19/17) this evening and confirmed medications. * Provigil 200mg PO TID * Addreall 10mg PO TID (3pm, 6pm, 9pm) 8. History of Asthma * Duonebs 3mL q6h prn 9. Prophylactic Care * DVT - score 1 - SCDs only - anticoag not indicated * GI - Pepcid 20mg PO daily * Heart Healthy, Na+ 2g, Carbohydrate Consistent diet
[2017-12-26] MEDS ORDERED: Potassium Chloride 20 mEq ER Tab PO ONE (15:30)
[2017-12-26] MEDS ORDERED: Pneumococcal 23-Valent Vaccine IM ONE (18:00)
--- NOTE | 2017-12-26 20:37 | CP.PCM.CON ---
History of Present Illness - History of Present Illness History of Present Illness: 37 year old female with a history of DM, HTN, narcolepsy, admitted with chest pain and abdominal pain and family history of sickle cell anemia. The patient notes to abdominal pain and chest pain for several days. The pain continued to progress which prompted her to come to the hospital. She is requesting evaluation for sickle cell anemia given her family history. Past medica history: DM, HTN, narcolepsy Past surgical history: None Family history: Parents have sickle trait, brother had sickle cell anemia Social history: Drinks alcohol socially Allergies: Latex Review of systems: All remaining review of systems including HEENT, cardiovascular, respiratory, gastrointestinal, genitourinary, musculoskeletal, dermatologic, neurologic, and psychiatric are negative unless mentioned in the HPI. Past Patient History - Infectious Disease Hx of Infectious Diseases: None - Past Medical History & Family History Past Medical History?: Yes - Past Social History Smoking Status: Never Smoked - CARDIAC Hx Hypertension: Yes - PULMONARY Hx Asthma: Yes - NEUROLOGICAL Hx Neurological Disorder: Yes Other/Comment: NARCOLEPSY - HEENT Other/Comment: CHRONIC TONSILLITIS; Wears contacts - RENAL Hx Chronic Kidney Disease: No - ENDOCRINE/METABOLIC Hx Endocrine Disorders: Yes Hx Diabetes Mellitus Type 2: Yes Other/Comment: pre DM - GENITOURINARY/GYNECOLOGICAL Hx Urinary Tract Infection: Yes - PSYCHIATRIC Hx Anxiety: Yes Hx Depression: Yes Hx Substance Use: No - SURGICAL HISTORY Hx Tonsillectomy: Yes - ANESTHESIA Hx Anesthesia: Yes Hx Anesthesia Reactions: No Hx Malignant Hyperthermia: No Meds Allergies/Adverse Reactions: Allergies Allergy/AdvReac Type Severity Reaction Status Date / Time latex Allergy Verified 12/25/17 05:47 - Medications Medications: Current Medications Albuterol/Ipratropium (Duoneb 3 Mg/0.5 Mg (3 Ml) Ud) 3 ml INH RQ6 PRN PRN Reason: Shortness of Breath Last Admin: 12/26/17 04:10 Dose: 3 ml Atenolol (Tenormin) 100 mg PO HS [facility] Last Admin: 12/25/17 22:00 Dose: Not Given Dextrose (Dextrose 50% Inj) 0 ml IV STAT PRN; Protocol PRN Reason: Hypoglycemia Protocol Dextrose (Glutose 15) 0 gm PO ONCE PRN; Protocol PRN Reason: Hypoglycemia Protocol Docusate Sodium (Colace) 100 mg PO BID [facility] Last Admin: 12/26/17 10:23 Dose: 100 mg Famotidine (Pepcid) 20 mg PO DAILY [facility] Last Admin: 12/26/17 10:23 Dose: 20 mg Glucagon (Glucagen Diagnostic Kit) 0 mg IM STAT PRN; Protocol PRN Reason: Hypoglycemia Protocol Ceftriaxone Sodium 1 gm/ (Sodium Chloride) 100 mls @ 100 mls/hr IVPB Q24H [facility] Last Admin: 12/26/17 13:18 Dose: 100 mls/hr Dextrose (Dextrose 5% In Water 1000 Ml) 1,000 mls @ 0 mls/hr IV .Q0M PRN; Protocol; Per Protocol PRN Reason: Hypoglycemia Protocol Sodium Chloride (Sodium Chloride 0.9%) 1,000 mls @ 100 mls/hr IV .Q10H [facility] Last Admin: 12/26/17 14:40 Dose: Not Given Insulin Human Regular (Novolin R) 0 unit SC ACHS [facility] PRN Reason: Protocol Last Admin: 12/26/17 17:39 Dose: Not Given Losartan Potassium (Cozaar) 100 mg PO DAILY [facility] Last Admin: 12/26/17 10:23 Dose: 100 mg Modafinil (Provigil) 200 mg PO TID [facility] Morphine Sulfate (Morphine) 2 mg IVP Q6H PRN PRN Reason: Pain, moderate (4-7) Last Admin: 12/25/17 20:04 Dose: 2 mg Morphine Sulfate (Morphine) 4 mg IVP Q6H PRN PRN Reason: Pain, severe (8-10) Last Admin: 12/25/17 15:24 Dose: 4 mg Ondansetron HCl (Zofran Inj) 4 mg IVP Q6H PRN PRN Reason: Nausea/Vomiting Last Admin: 12/26/17 17:03 Dose: 4 mg Potassium Phos/Sodium Phos (Neutra-Phos) 1 pkt PO BID [facility] Stop: 12/27/17 13:01 Saccharomyces Boulardii (Florastor) 250 mg PO BID [facility] Last Admin: 12/26/17 10:23 Dose: 250 mg Physical Exam - Head Exam Head Exam: ATRAUMATIC - Eye Exam Eye Exam: Normal appearance - ENT Exam ENT Exam: Mucous Membranes Dry - Respiratory Exam Respiratory Exam: NORMAL BREATHING PATTERN - Cardiovascular Exam Cardiovascular Exam: +S1, +S2 - GI/Abdominal Exam GI & Abdominal Exam: Normal Bowel Sounds Results - Vital Signs Recent Vital Signs: Last Vital Signs Temp 98.3 F 12/26/17 15:32 Pulse 80 12/26/17 15:32 Resp 18 12/26/17 15:32 BP 152/81 H 12/26/17 15:32 Pulse Ox 100 12/26/17 15:32 - Labs Result Diagrams: 12/26/17 11:11 12/26/17 08:02 Labs: Laboratory Results - last 24 hr 12/25/17 12/26/17 12/26/17 12:49 01:39 07:55 WBC RBC Hgb Hct MCV MCH MCHC RDW Plt Count MPV Neut % (Auto) Lymph % (Auto) Hanson % (Auto) Eos % (Auto) Baso % (Auto) Neut # (Auto) Lymph # (Auto) Hanson # (Auto) Eos # (Auto) Baso # (Auto) Sickle Cell Screen Hemoglobinopathy Red Blood Count 3.93 Hemoglobinopathy Hct 35.5 Hemoglobinopathy Hgb 11.3 L Hemoglobinopathy MCV 90.4 Hemoglobinopathy MCH 28.8 Hemoglobinopathy RDW 12.9 Sodium Potassium Chloride Carbon Dioxide Anion Gap BUN Creatinine Est GFR ( Amer) Est GFR (Non-Af Amer) POC Glucose (mg/dL) 93 127 H Random Glucose Hemoglobin A1c Calcium Phosphorus Magnesium Total Bilirubin AST ALT Alkaline Phosphatase Total Protein Albumin Globulin Albumin/Globulin Ratio Triglycerides Cholesterol LDL Cholesterol Direct HDL Cholesterol Free T4 TSH 3rd Generation Hepatitis A IgM Ab Hep Bs Antigen Hep B Core IgM Ab Hepatitis C Antibody HIV 1&2 Antibody Screen 12/26/17 12/26/17 12/26/17 08:02 08:02 08:02 WBC RBC Hgb Hct MCV MCH MCHC RDW Plt Count MPV Neut % (Auto) Lymph % (Auto) Hanson % (Auto) Eos % (Auto) Baso % (Auto) Neut # (Auto) Lymph # (Auto) Hanson # (Auto) Eos # (Auto) Baso # (Auto) Sickle Cell Screen Hemoglobinopathy Red Blood Count Hemoglobinopathy Hct Hemoglobinopathy Hgb Hemoglobinopathy MCV Hemoglobinopathy MCH Hemoglobinopathy RDW Sodium 133 Potassium 3.3 L Chloride 99 Carbon Dioxide 25 Anion Gap 12 BUN 9 Creatinine 0.6 L Est GFR ( Amer) > 60 Est GFR (Non-Af Amer) > 60 POC Glucose (mg/dL) Random Glucose 133 H Hemoglobin A1c 5.9 Calcium 8.3 L Phosphorus 2.3 L Magnesium 1.8 Total Bilirubin 0.5 AST 20 ALT 27 Alkaline Phosphatase 76 Total Protein 7.0 Albumin 3.5 Globulin 3.6 Albumin/Globulin Ratio 1.0 Triglycerides 58 Cholesterol 158 LDL Cholesterol Direct 80 HDL Cholesterol 46 Free T4 0.83 TSH 3rd Generation 0.35 L Hepatitis A IgM Ab Hep Bs Antigen Hep B Core IgM Ab Hepatitis C Antibody HIV 1&2 Antibody Screen 12/26/17 12/26/17 12/26/17 08:02 08:02 11:11 WBC 8.2 RBC 3.75 L Hgb 11.1 Hct 33.6 L MCV 89.5 MCH 29.6 MCHC 33.1 RDW 12.9 Plt Count 229 MPV 8.6 Neut % (Auto) 73.3 Lymph % (Auto) 16.2 L Hanson % (Auto) 9.4 Eos % (Auto) 0.2 Baso % (Auto) 0.9 Neut # (Auto) 6.0 Lymph # (Auto) 1.3 Hanson # (Auto) 0.8 Eos # (Auto) 0.0 Baso # (Auto) 0.1 Sickle Cell Screen Negative Hemoglobinopathy Red Blood Count Hemoglobinopathy Hct Hemoglobinopathy Hgb Hemoglobinopathy MCV Hemoglobinopathy MCH Hemoglobinopathy RDW Sodium Potassium Chloride Carbon Dioxide Anion Gap BUN Creatinine Est GFR ( Amer) Est GFR (Non-Af Amer) POC Glucose (mg/dL) Random Glucose Hemoglobin A1c Calcium Phosphorus Magnesium Total Bilirubin AST ALT Alkaline Phosphatase Total Protein Albumin Globulin Albumin/Globulin Ratio Triglycerides Cholesterol LDL Cholesterol Direct HDL Cholesterol Free T4 TSH 3rd Generation Hepatitis A IgM Ab Negative Hep Bs Antigen Negative Hep B Core IgM Ab Negative Hepatitis C Antibody Negative HIV 1&2 Antibody Screen Negative 12/26/17 12/26/17 12:43 16:40 WBC RBC Hgb Hct MCV MCH MCHC RDW Plt Count MPV Neut % (Auto) Lymph % (Auto) Hanson % (Auto) Eos % (Auto) Baso % (Auto) Neut # (Auto) Lymph # (Auto) Hanson # (Auto) Eos # (Auto) Baso # (Auto) Sickle Cell Screen Hemoglobinopathy Red Blood Count Hemoglobinopathy Hct Hemoglobinopathy Hgb Hemoglobinopathy MCV Hemoglobinopathy MCH Hemoglobinopathy RDW Sodium Potassium Chloride Carbon Dioxide Anion Gap BUN Creatinine Est GFR ( Amer) Est GFR (Non-Af Amer) POC Glucose (mg/dL) 117 H 96 Random Glucose Hemoglobin A1c Calcium Phosphorus Magnesium Total Bilirubin AST ALT Alkaline Phosphatase Total Protein Albumin Globulin Albumin/Globulin Ratio Triglycerides Cholesterol LDL Cholesterol Direct HDL Cholesterol Free T4 TSH 3rd Generation Hepatitis A IgM Ab Hep Bs Antigen Hep B Core IgM Ab Hepatitis C Antibody HIV 1&2 Antibody Screen Assessment & Plan (1) Anemia Assessment and Plan: will check ferritin, retic count, b12, folate hgb electropheresis to evaluate for hemoglobinopathy Thank you for this interesting consult. Status: Acute
[2017-12-26] MEDS: Potassium & Sodium Phosphate PO SCH (22:19)
[2017-12-27] MEDS: Sodium Chloride 0.9% 1,000 ML IV SCH ×3 (00:30→23:45)
[2017-12-27] MEDS: (Novolin R) Insulin Human Regular 100 units/ml vial SC SCH ×4 (08:10→21:22)
[2017-12-27] MEDS ORDERED: Iohexol 240 (50 ml) PO ONE (08:15)
--- NOTE | 2017-12-27 08:25 | CP.PCM.PN ---
<Gracie John - Last Filed: 12/27/17 14:30> Subjective - Date & Time of Evaluation Date of Evaluation: 12/27/17 Time of Evaluation: 07:00 - Subjective Subjective: Medicine Note for Hospitalist Service - Dr. Ott Patient was seen and examined at bedside. Patient reports she feels much better today. She attempted to eat lunch yesterday, but started to have abdominal pain. For dinner she ate a smaller portion and tolerated it well. She has not had any chest pain since admission. Denied, fever, chills, headache, chest pain , SOB, n/v/d/c, or urinary symptoms. Objective - Vital Signs/Intake and Output Vital Signs (last 24 hours): Temp Pulse Resp BP Pulse Ox 98.2 F 57 L 20 118/71 97 12/27/17 08:17 12/27/17 08:17 12/27/17 08:17 12/27/17 08:17 12/27/17 08:17 Intake and Output: 12/27/17 12/27/17 06:59 18:59 Intake Total 820 Balance 820 - Medications Medications: Current Medications Albuterol/Ipratropium (Duoneb 3 Mg/0.5 Mg (3 Ml) Ud) 3 ml INH RQ6 PRN PRN Reason: Shortness of Breath Last Admin: 12/26/17 04:10 Dose: 3 ml Atenolol (Tenormin) 100 mg PO HS [facility] Last Admin: 12/26/17 22:20 Dose: 100 mg Dextrose (Dextrose 50% Inj) 0 ml IV STAT PRN; Protocol PRN Reason: Hypoglycemia Protocol Dextrose (Glutose 15) 0 gm PO ONCE PRN; Protocol PRN Reason: Hypoglycemia Protocol Docusate Sodium (Colace) 100 mg PO BID [facility] Last Admin: 12/26/17 20:48 Dose: 100 mg Famotidine (Pepcid) 20 mg PO DAILY [facility] Last Admin: 12/26/17 10:23 Dose: 20 mg Glucagon (Glucagen Diagnostic Kit) 0 mg IM STAT PRN; Protocol PRN Reason: Hypoglycemia Protocol Ceftriaxone Sodium 1 gm/ (Sodium Chloride) 100 mls @ 100 mls/hr IVPB Q24H [facility] Last Admin: 12/26/17 13:18 Dose: 100 mls/hr Dextrose (Dextrose 5% In Water 1000 Ml) 1,000 mls @ 0 mls/hr IV .Q0M PRN; Protocol; Per Protocol PRN Reason: Hypoglycemia Protocol Sodium Chloride (Sodium Chloride 0.9%) 1,000 mls @ 100 mls/hr IV .Q10H [facility] Last Admin: 12/27/17 00:30 Dose: 100 mls/hr Insulin Human Regular (Novolin R) 0 unit SC ACHS [facility] PRN Reason: Protocol Last Admin: 12/27/17 08:10 Dose: Not Given Losartan Potassium (Cozaar) 100 mg PO DAILY [facility] Last Admin: 12/26/17 10:23 Dose: 100 mg Modafinil (Provigil) 200 mg PO TID [facility] Morphine Sulfate (Morphine) 2 mg IVP Q6H PRN PRN Reason: Pain, moderate (4-7) Last Admin: 12/25/17 20:04 Dose: 2 mg Morphine Sulfate (Morphine) 4 mg IVP Q6H PRN PRN Reason: Pain, severe (8-10) Last Admin: 12/25/17 15:24 Dose: 4 mg Ondansetron HCl (Zofran Inj) 4 mg IVP Q6H PRN PRN Reason: Nausea/Vomiting Last Admin: 12/26/17 17:03 Dose: 4 mg Potassium Phos/Sodium Phos (Neutra-Phos) 1 pkt PO BID [facility] Stop: 12/27/17 13:01 Last Admin: 12/26/17 22:19 Dose: 1 pkt Saccharomyces Boulardii (Florastor) 250 mg PO BID [facility] Last Admin: 12/26/17 20:48 Dose: 250 mg - Labs Labs: 12/26/17 11:11 12/26/17 08:02 - Additional Findings Additional findings: - Constitutional Appears: Non-toxic, Other (Obese, lethargic (recently given dilaudid) ) - Head Exam Head Exam: ATRAUMATIC, NORMOCEPHALIC - Eye Exam Eye Exam: EOMI, Normal appearance - ENT Exam ENT Exam: Mucous Membranes Moist - Neck Exam Neck exam: Positive for: Full Rom. Negative for: Lymphadenopathy, Thyromegaly - Respiratory Exam Respiratory Exam: Clear to Auscultation Bilateral, NORMAL BREATHING PATTERN. absent: Accessory Muscle Use, Rales, Rhonchi, Wheezes, Respiratory Distress - Cardiovascular Exam Cardiovascular Exam: REGULAR RHYTHM, +S1, +S2. absent: Diastolic murmur, JVD, Systolic Murmur - GI/Abdominal Exam GI & Abdominal Exam: Normal Bowel Sounds, Soft, Tenderness (epigastric and RUQ) . absent: Distended, Firm, Hernia, Rebound, Rigid Additional comments: NEGATIVE CVA TENDERNESS - Rectal Exam Additional comments: Heme occult negative. - Extremities Exam Extremities exam: Positive for: pedal pulses present. Negative for: calf tenderness, pedal edema - Neurological Exam Neurological exam: Alert, Oriented x3 Additional comments: - Skin Skin Exam: Dry, Warm Assessment and Plan - Assessment and Plan (Free Text) Plan: Cholecystitis Abdominal Pain General Surgery consulted - Dr. Perrin- help appreciated Hx of H.pylori x 5 years ago Amylase 65 Lipase 23 Hepatitis Panel - negative HIV screen - negative f/u H. pylori Imaging: Abdominal and pelvis CT with PO and IV contrast 12/27/17 - Gallbladder distension. No calcified gallstones identified. Gallbladder wall thickening/ pericholecystic edema. Please note that gallstones evident on ultrasound performed 12/25/17. Recommend clinical correlation possibility of cholecystitis. Marked wall thickening of the colon at the level of the hepatic flexure; correlate clinically for possibility of colitis (i.e. Infectious, inflammatory, ischemic). Diverticulosis without CT evidence of acute diverticulitis. The stomach is nondistended. Wall thickening noted at the level the gastric pylorus likely related to under distention or contraction; correlate clinically. Small pelvic free fluid, may be physiologic. Abdominal US - 1.) Prominent liver with diffuse increased echogenicity of the hepatic parenchymal cortex suggestive for fatty infiltration versus hepatic parenchymal disease. Clinical correlation. 2.) Cholelithiasis. 3.)Somewhat limited evaluation of the pancreas. Transvaginal US - Fibroid uterus. Prominent endometrium measuring up to 1.2 centimeters. Small amount of free fluid within the pelvic cul-de-sac. Chest Pain r/o ACS - resolved Less likely Sickle Cell Crisis Heme/Onc consulted, Dr. Isaak Mendoza Cardio consulted, Dr. Bhatia Trop negative x3, EKG: Julio Cesar - no AV Block Hemoglobinopathy eval f/u Peripheral Smear f/u Hemoglobin Electrophoresis f/u Believed to possibly due to sickle cell crisis since patient's parents both were positive for the sickle cell trait. Brother secondary to sickle cell at age 21. Patient has been worked up for sickle cell in her country Negative. Imaging: Chest CTA - Study somewhat limited secondary to suboptimal contrast timing bolus as well as large field of view and patient motion. No evidence of gross central acute pulmonary embolism. More limited evaluation of the segmental and subsegmental branches. ECHO f/u Morphine 2mg IVP q6h PRN for mod. pain Morphine 4mg IVP q6h PRN for severe pain Zofran 4mg IVP q6h PRN NS @150mL/hr x 1 L, then NS @100mL/hr Asymptomatic Bacteriuria UA - protein 1+, Blood 1+, Nitrates positive, Leuko Olive 1+, Bacteria Occ Urine Culture - E.coli - sensitive to Cipro and Rocephin Meds: Rocephin 1gm IVPB qD Florastor 250mg PO BID T2DM Accuchecks ISS ACHS- high, Metformin 500mg PO daily (held due to IV contrast) HgbA1c - 5.9 HTN Atenolol 100mg daily Losartan 100mg PO daily Narcolepsy Resumed Provigil 200 mg TID;Adderall 30 mg qd and 10 mg TID (total 60mg) - NOT on Formulary Asthma Duonebs 3mL q6h prn Prophylactic Care DVT - score 1 - SCDs only - anticoag not indicated GI - Pepcid 20mg PO daily Heart Healthy, Na+ 2g, Carbohydrate Consistent diet DW Dr. Ott, Gracie John DO, PGY-1 <Charity Ott V - Last Filed: 12/28/17 09:10> Objective - Vital Signs/Intake and Output Vital Signs (last 24 hours): Temp Pulse Resp BP Pulse Ox 98.3 F 58 L 20 120/80 99 12/27/17 23:10 12/27/17 23:10 12/27/17 23:10 12/27/17 23:10 12/27/17 23:10 - Medications Medications: Current Medications Albuterol/Ipratropium (Duoneb 3 Mg/0.5 Mg (3 Ml) Ud) 3 ml INH RQ6 PRN PRN Reason: Shortness of Breath Last Admin: 12/26/17 04:10 Dose: 3 ml Atenolol (Tenormin) 100 mg PO HS [facility] Last Admin: 12/27/17 21:21 Dose: 100 mg Dextrose (Dextrose 50% Inj) 0 ml IV STAT PRN; Protocol PRN Reason: Hypoglycemia Protocol Dextrose (Glutose 15) 0 gm PO ONCE PRN; Protocol PRN Reason: Hypoglycemia Protocol Docusate Sodium (Colace) 100 mg PO BID [facility] Last Admin: 12/27/17 18:09 Dose: 100 mg Famotidine (Pepcid) 20 mg PO DAILY [facility] Last Admin: 12/27/17 09:42 Dose: 20 mg Ferric Sodium Gluconate Complex (Ferrlecit) 125 mg IVPB DAILY [facility] Stop: 01/05/18 10:01 Glucagon (Glucagen Diagnostic Kit) 0 mg IM STAT PRN; Protocol PRN Reason: Hypoglycemia Protocol Ceftriaxone Sodium 1 gm/ (Sodium Chloride) 100 mls @ 100 mls/hr IVPB Q24H [facility] Last Admin: 12/27/17 13:20 Dose: 100 mls/hr Dextrose (Dextrose 5% In Water 1000 Ml) 1,000 mls @ 0 mls/hr IV .Q0M PRN; Protocol; Per Protocol PRN Reason: Hypoglycemia Protocol Metronidazole (Flagyl) 500 mg in 100 mls @ 100 mls/hr IVPB Q8 [facility] Last Admin: 12/28/17 05:18 Dose: 100 mls/hr Insulin Human Regular (Novolin R) 0 unit SC ACHS [facility] PRN Reason: Protocol Last Admin: 12/27/17 21:22 Dose: Not Given Losartan Potassium (Cozaar) 100 mg PO DAILY [facility] Last Admin: 12/27/17 09:42 Dose: 100 mg Modafinil (Provigil) 200 mg PO TID [facility] Last Admin: 12/27/17 18:16 Dose: Not Given Ondansetron HCl (Zofran Inj) 4 mg IVP Q6H PRN PRN Reason: Nausea/Vomiting Last Admin: 12/26/17 17:03 Dose: 4 mg Saccharomyces Boulardii (Florastor) 250 mg PO BID [facility] Last Admin: 12/27/17 18:10 Dose: 250 mg - Labs Labs: 12/27/17 08:21 12/27/17 08:21 Attending/Attestation - Attestation I have personally seen and examined this patient.: Yes I have fully participated in the care of the patient.: Yes I have reviewed all pertinent clinical information, including history, physical exam and plan: Yes
[2017-12-27 08:32] LABS: BASO % 0.5 % (0.0-2.0); EOS # 0.1 K/uL (0.0-0.7); EOS % 2.4 % (0.0-4.0); HEMOGLOBIN 10.7 g/dL (11.0-16.0); LYMPH # 1.9 K/uL (1.0-4.3); LYMPH % 32.4 % (20.0-40.0); MEAN CELL VOLUME 88.9 fL (81.0-99.0); MEAN CORPUSCULAR HEMOGLOBIN 29.7 pg (27.0-31.0); MEAN CORPUSCULAR HGB CONC 33.4 g/dL (33.0-37.0); MEAN PLATELET VOLUME 8.3 fL (7.2-11.7); MONO # 0.6 K/uL (0.0-0.8); MONO % 9.7 % (0.0-10.0); NEUT # 3.3 K/uL (1.8-7.0); RBC 3.62 Mil/uL (3.80-5.20); RED CELL DISTRIBUTION WIDTH 12.6 % (11.5-14.5)
[2017-12-27 08:50] LABS: ALBUMIN 3.2 g/dL (3.5-5.0); ALT/SGPT 16 U/L (9-52); AST/SGOT 17 U/L (14-36); BLOOD UREA NITROGEN 6 mg/dL (7-17); CALCIUM 8.4 mg/dl (8.6-10.4); GFR AFRICAN-AMERICAN > 60; GFR NON-AFRICAN AMERICAN > 60; MAGNESIUM 1.8 mg/dL (1.6-2.3)
[2017-12-27 09:26] LABS: FERRITIN 25.9 ng/mL
[2017-12-27] MEDS: Potassium & Sodium Phosphate PO SCH (09:42)
[2017-12-27] MEDS: Saccharomyces Boulardi 250 mg Cap PO SCH ×2 (09:42→18:10)
[2017-12-27 09:56] LABS: FOLATE 10.1 ng/mL
[2017-12-27] MEDS ORDERED: Iodixanol 320 MG/ML 100 ML BOTTLE IV ONE ×2 (11:42→11:47)
--- NOTE | 2017-12-27 13:24 | CT ---
PROCEDURE: CT Abdomen and Pelvis with oral and IV contrast. HISTORY: Abdominal pain COMPARISON: Abdominal ultrasound performed 12/25/17, pelvic ultrasound performed 12/25/17 TECHNIQUE: Contiguous axial images of the abdomen and pelvis. Oral and IV contrast was administered. Coronal and Sagittal reformats generated and reviewed. Contrast dose: 100 cc visi opaque 320 Radiation dose: Total exam DLP = 1255.11 mGy-cm. This CT exam was performed using one or more of the following dose reduction techniques: Automated exposure control, adjustment of the mA and/or kV according to patient size, and/or use of iterative reconstruction technique. FINDINGS: LOWER THORAX: Small right pleural effusion. No focal consolidation or pneumothorax identified. LIVER: Unremarkable. GALLBLADDER AND BILE DUCTS: Gallbladder distension. No calcified gallstones identified. Gallbladder wall thickening/pericholecystic edema. PANCREAS: Unremarkable. SPLEEN: Unremarkable. ADRENALS: Unremarkable. KIDNEYS AND URETERS: The kidneys enhance symmetrically. No hydronephrosis or obstructing renal calculus. BLADDER: The urinary bladder appears unremarkable. REPRODUCTIVE: Uterus is present. APPENDIX: The appendix appears within normal limits of caliber. No secondary signs of acute appendicitis. BOWEL: The stomach is nondistended. Wall thickening noted at the level the gastric pylorus likely related to under distention or contraction; correlate clinically. The bowel loops appear within normal limits of caliber without evidence of intestinal obstruction. Marked wall thickening of the colon at the level of the hepatic flexure; correlate clinically for possibility of colitis (i.e. Infectious, inflammatory, ischemic). Diverticulosis without CT evidence of acute diverticulitis. PERITONEUM: Small pelvic free fluid. No definite free air. LYMPH NODES: No bulky lymphadenopathy identified. VASCULATURE: No aortic aneurysm. BONES: No acute osseous abnormality is detected. OTHER FINDINGS: None. IMPRESSION: Gallbladder distension. No calcified gallstones identified. Gallbladder wall thickening/pericholecystic edema. Please note that gallstones evident on ultrasound performed 12/25/17. Recommend clinical correlation possibility of cholecystitis. Marked wall thickening of the colon at the level of the hepatic flexure; correlate clinically for possibility of colitis (i.e. Infectious, inflammatory, ischemic). Diverticulosis without CT evidence of acute diverticulitis. The stomach is nondistended. Wall thickening noted at the level the gastric pylorus likely related to under distention or contraction; correlate clinically. Small pelvic free fluid, may be physiologic. Additional findings as above.
--- NOTE | 2017-12-27 13:58 | CARD ---
APPROVED REPORT EKG Measurement Heart [id number] [place] [id number] <Conclusion> Normal sinus rhythm Normal ECG
--- NOTE | 2017-12-27 13:58 | CARD ---
APPROVED REPORT EKG Measurement Heart [id number] <Conclusion> Normal sinus rhythm Possible Left atrial enlargement Borderline ECG
[2017-12-27] MEDS: metroNIDAZOLE IV 500 mg/100 ml 500 MG/100 ML BAG IVPB SCH ×2 (15:05→21:21)
[2017-12-27 16:28] LABS: HEMOGLOBIN A 96.7 Percent (>96.0); HEMOGLOBIN A2 2.3 Percent (1.8-3.5)
--- NOTE | 2017-12-27 17:21 | CP.PCM.CON ---
History of Present Illness - History of Present Illness History of Present Illness: General Surgery Consult note for Dr. Justina Rogel, PGY-1 Pt S & E at bedside 37F w/PMH sig for HTN, DM, Asthma, Narcolepsy consulted for Cholecystitis. Pt presented on 12/25 with RUQ abd pain radiating into her chest and right shoulder/ back region. Pain was constant and began several weeks ago and progressively worsened. Pt also reported complaints of nausea. Today, pt reports no abd pain and denies any nausea or vomiting. CT Scan: Gallbladder distension, gallbladder wall thickening/pericholecystic edema. Ultrasound:Cholelithiasis with calculus measuring 1.6 cm, negative sonographic Armstrong's sign. Afebrile and no leukocytosis. PMH:HTN,Asthma, Narcolepsy, DM2 PSH: Tonsillectomy, Bilateral breast cysts removed in 2016 and 2015 All:Latex (pruritus reaction) SH: Occasional alcohol use Review of Systems - Review of Systems All systems: reviewed and no additional remarkable complaints except - Constitutional Constitutional: absent: Chills, Fever - EENT Eyes: absent: Change in Vision - Cardiovascular Cardiovascular: absent: Chest Pain, Palpitations - Respiratory Respiratory: absent: Cough - Gastrointestinal Gastrointestinal: Abdominal Pain, Nausea (Resolved), Vomiting (Resolved). absent: Constipation, Diarrhea - Musculoskeletal Musculoskeletal: absent: Myalgias - Integumentary Integumentary: absent: Rash - Neurological Neurological: absent: Headaches Past Patient History - Infectious Disease Hx of Infectious Diseases: None - Past Medical History & Family History Past Medical History?: Yes - Past Social History Smoking Status: Never Smoked - CARDIAC Hx Hypertension: Yes - PULMONARY Hx Asthma: Yes - NEUROLOGICAL Hx Neurological Disorder: Yes Other/Comment: NARCOLEPSY - HEENT Other/Comment: CHRONIC TONSILLITIS; Wears contacts - RENAL Hx Chronic Kidney Disease: No - ENDOCRINE/METABOLIC Hx Endocrine Disorders: Yes Hx Diabetes Mellitus Type 2: Yes Other/Comment: pre DM - INTEGUMENTARY Hx Dermatological Problems: No - MUSCULOSKELETAL/RHEUMATOLOGICAL Hx Musculoskeletal Disorders: No Hx Falls: Yes - GASTROINTESTINAL Hx Gastrointestinal Disorders: No - GENITOURINARY/GYNECOLOGICAL Hx Urinary Tract Infection: Yes - PSYCHIATRIC Hx Anxiety: Yes Hx Depression: Yes Hx Substance Use: No - SURGICAL HISTORY Hx Tonsillectomy: Yes - ANESTHESIA Hx Anesthesia: Yes Hx Anesthesia Reactions: No Hx Malignant Hyperthermia: No Meds Allergies/Adverse Reactions: Allergies Allergy/AdvReac Type Severity Reaction Status Date / Time latex Allergy Verified 12/25/17 05:47 - Medications Medications: Current Medications Albuterol/Ipratropium (Duoneb 3 Mg/0.5 Mg (3 Ml) Ud) 3 ml INH RQ6 PRN PRN Reason: Shortness of Breath Last Admin: 12/26/17 04:10 Dose: 3 ml Atenolol (Tenormin) 100 mg PO HS [facility] Last Admin: 12/26/17 22:20 Dose: 100 mg Dextrose (Dextrose 50% Inj) 0 ml IV STAT PRN; Protocol PRN Reason: Hypoglycemia Protocol Dextrose (Glutose 15) 0 gm PO ONCE PRN; Protocol PRN Reason: Hypoglycemia Protocol Docusate Sodium (Colace) 100 mg PO BID [facility] Last Admin: 12/27/17 09:42 Dose: 100 mg Famotidine (Pepcid) 20 mg PO DAILY [facility] Last Admin: 12/27/17 09:42 Dose: 20 mg Glucagon (Glucagen Diagnostic Kit) 0 mg IM STAT PRN; Protocol PRN Reason: Hypoglycemia Protocol Ceftriaxone Sodium 1 gm/ (Sodium Chloride) 100 mls @ 100 mls/hr IVPB Q24H [facility] Last Admin: 12/27/17 13:20 Dose: 100 mls/hr Dextrose (Dextrose 5% In Water 1000 Ml) 1,000 mls @ 0 mls/hr IV .Q0M PRN; Protocol; Per Protocol PRN Reason: Hypoglycemia Protocol Sodium Chloride (Sodium Chloride 0.9%) 1,000 mls @ 100 mls/hr IV .Q10H [facility] Last Admin: 12/27/17 09:41 Dose: 100 mls/hr Metronidazole (Flagyl) 500 mg in 100 mls @ 100 mls/hr IVPB Q8 [facility] Last Admin: 12/27/17 15:05 Dose: 100 mls/hr Insulin Human Regular (Novolin R) 0 unit SC ACHS [facility] PRN Reason: Protocol Last Admin: 12/27/17 12:30 Dose: Not Given Losartan Potassium (Cozaar) 100 mg PO DAILY [facility] Last Admin: 12/27/17 09:42 Dose: 100 mg Modafinil (Provigil) 200 mg PO TID [facility] Ondansetron HCl (Zofran Inj) 4 mg IVP Q6H PRN PRN Reason: Nausea/Vomiting Last Admin: 12/26/17 17:03 Dose: 4 mg Saccharomyces Boulardii (Florastor) 250 mg PO BID [facility] Last Admin: 12/27/17 09:42 Dose: 250 mg Physical Exam - Constitutional Appears: Well, No Acute Distress - Head Exam Head Exam: ATRAUMATIC, NORMAL INSPECTION, NORMOCEPHALIC - Eye Exam Eye Exam: EOMI, Normal appearance, PERRL - ENT Exam ENT Exam: Mucous Membranes Moist, Normal Exam - Neck Exam Neck exam: Positive for: Normal Inspection - Respiratory Exam Respiratory Exam: Clear to Auscultation Bilateral, NORMAL BREATHING PATTERN - Cardiovascular Exam Cardiovascular Exam: REGULAR RHYTHM, +S1, +S2 - GI/Abdominal Exam GI & Abdominal Exam: Normal Bowel Sounds, Soft, Tenderness. absent: Guarding, Rebound, Rigid Additional comments: RUQ - Extremities Exam Extremities exam: Positive for: normal inspection - Neurological Exam Neurological exam: Alert, CN II-XII Intact, Oriented x3 - Psychiatric Exam Psychiatric exam: Normal Affect, Normal Mood - Skin Skin Exam: Dry, Intact, Normal Color, Warm Results - Vital Signs Recent Vital Signs: Last Vital Signs Temp 98.1 F 12/27/17 15:25 Pulse 61 12/27/17 15:25 Resp 20 12/27/17 15:25 BP 122/71 12/27/17 15:25 Pulse Ox 100 12/27/17 15:25 - Labs Result Diagrams: 12/27/17 08:21 12/27/17 08:21 Labs: Laboratory Results - last 24 hr 12/25/17 12/26/17 12/27/17 12:49 21:20 06:21 WBC RBC Hgb Hct MCV MCH MCHC RDW Plt Count MPV Neut % (Auto) Lymph % (Auto) [place] % (Auto) Eos % (Auto) Baso % (Auto) Neut # (Auto) Lymph # (Auto) [place] # (Auto) Eos # (Auto) Baso # (Auto) Retic Count Hemoglobin A 96.7 Hemoglobin A2 2.3 Hemoglobin C 0.0 Hemoglobin F () <1.0 Hemoglobin S 0.0 Variant Hemoglobin 0.0 Hemoglobinopathy Interp See note Sodium Potassium Chloride Carbon Dioxide Anion Gap BUN Creatinine Est GFR ( Amer) Est GFR (Non-Af Amer) POC Glucose (mg/dL) 141 H 109 Random Glucose Calcium Phosphorus Magnesium Ferritin Total Bilirubin AST ALT Alkaline Phosphatase Total Protein Albumin Globulin Albumin/Globulin Ratio Vitamin B12 Folate 12/27/17 12/27/17 12/27/17 08:21 08:21 08:21 WBC 6.0 RBC 3.62 L Hgb 10.7 L Hct 32.1 L MCV 88.9 MCH 29.7 MCHC 33.4 RDW 12.6 Plt Count 210 MPV 8.3 Neut % (Auto) 55.0 Lymph % (Auto) 32.4 [place] % (Auto) 9.7 Eos % (Auto) 2.4 Baso % (Auto) 0.5 Neut # (Auto) 3.3 Lymph # (Auto) 1.9 [place] # (Auto) 0.6 Eos # (Auto) 0.1 Baso # (Auto) 0.0 Retic Count 1.0 Hemoglobin A Hemoglobin A2 Hemoglobin C Hemoglobin F () Hemoglobin S Variant Hemoglobin Hemoglobinopathy Interp Sodium 137 Potassium 3.6 Chloride 103 Carbon Dioxide 26 Anion Gap 12 BUN 6 L Creatinine 0.6 L Est GFR ( Amer) > 60 Est GFR (Non-Af Amer) > 60 POC Glucose (mg/dL) Random Glucose 102 Calcium 8.4 L Phosphorus 2.9 Magnesium 1.8 Ferritin 25.9 Total Bilirubin 0.3 AST 17 ALT 16 Alkaline Phosphatase 66 Total Protein 6.4 Albumin 3.2 L Globulin 3.3 Albumin/Globulin Ratio 1.0 Vitamin B12 656 Folate 10.1 12/27/17 12/27/17 11:32 16:35 WBC RBC Hgb Hct MCV MCH MCHC RDW Plt Count MPV Neut % (Auto) Lymph % (Auto) [place] % (Auto) Eos % (Auto) Baso % (Auto) Neut # (Auto) Lymph # (Auto) [place] # (Auto) Eos # (Auto) Baso # (Auto) Retic Count Hemoglobin A Hemoglobin A2 Hemoglobin C Hemoglobin F () Hemoglobin S Variant Hemoglobin Hemoglobinopathy Interp Sodium Potassium Chloride Carbon Dioxide Anion Gap BUN Creatinine Est GFR ( Amer) Est GFR (Non-Af Amer) POC Glucose (mg/dL) 114 H 115 H Random Glucose Calcium Phosphorus Magnesium Ferritin Total Bilirubin AST ALT Alkaline Phosphatase Total Protein Albumin Globulin Albumin/Globulin Ratio Vitamin B12 Folate Assessment & Plan - Assessment and Plan (Free Text) Assessment: 37F w/ symptomatic cholelithiasis Plan: Pain control Iv fluids NPO pMN Hold anticoagulation FU AM labs Plan for OR in AM Will obtain consent Further management per primary team NADINE attending - Date & Time Date: 12/27/17 Time: 17:19
--- NOTE | 2017-12-27 19:33 | CP.PCM.PN ---
Subjective - Date & Time of Evaluation Date of Evaluation: 12/27/17 Time of Evaluation: 19:05 - Subjective Subjective: Feeling better Objective - Vital Signs/Intake and Output Vital Signs (last 24 hours): Temp Pulse Resp BP Pulse Ox 98.1 F 61 20 122/71 100 12/27/17 15:25 12/27/17 15:25 12/27/17 15:25 12/27/17 15:25 12/27/17 15:25 - Medications Medications: Current Medications Albuterol/Ipratropium (Duoneb 3 Mg/0.5 Mg (3 Ml) Ud) 3 ml INH RQ6 PRN PRN Reason: Shortness of Breath Last Admin: 12/26/17 04:10 Dose: 3 ml Atenolol (Tenormin) 100 mg PO HS [facility] Last Admin: 12/26/17 22:20 Dose: 100 mg Dextrose (Dextrose 50% Inj) 0 ml IV STAT PRN; Protocol PRN Reason: Hypoglycemia Protocol Dextrose (Glutose 15) 0 gm PO ONCE PRN; Protocol PRN Reason: Hypoglycemia Protocol Docusate Sodium (Colace) 100 mg PO BID [facility] Last Admin: 12/27/17 18:09 Dose: 100 mg Famotidine (Pepcid) 20 mg PO DAILY [facility] Last Admin: 12/27/17 09:42 Dose: 20 mg Ferric Sodium Gluconate Complex (Ferrlecit) 125 mg IVPB DAILY [facility] Stop: 01/05/18 10:01 Glucagon (Glucagen Diagnostic Kit) 0 mg IM STAT PRN; Protocol PRN Reason: Hypoglycemia Protocol Ceftriaxone Sodium 1 gm/ (Sodium Chloride) 100 mls @ 100 mls/hr IVPB Q24H [facility] Last Admin: 12/27/17 13:20 Dose: 100 mls/hr Dextrose (Dextrose 5% In Water 1000 Ml) 1,000 mls @ 0 mls/hr IV .Q0M PRN; Protocol; Per Protocol PRN Reason: Hypoglycemia Protocol Sodium Chloride (Sodium Chloride 0.9%) 1,000 mls @ 100 mls/hr IV .Q10H [facility] Last Admin: 12/27/17 09:41 Dose: 100 mls/hr Metronidazole (Flagyl) 500 mg in 100 mls @ 100 mls/hr IVPB Q8 [facility] Last Admin: 12/27/17 15:05 Dose: 100 mls/hr Insulin Human Regular (Novolin R) 0 unit SC ACHS [facility] PRN Reason: Protocol Last Admin: 12/27/17 18:10 Dose: Not Given Losartan Potassium (Cozaar) 100 mg PO DAILY [facility] Last Admin: 12/27/17 09:42 Dose: 100 mg Modafinil (Provigil) 200 mg PO TID [facility] Last Admin: 12/27/17 18:16 Dose: Not Given Ondansetron HCl (Zofran Inj) 4 mg IVP Q6H PRN PRN Reason: Nausea/Vomiting Last Admin: 12/26/17 17:03 Dose: 4 mg Saccharomyces Boulardii (Florastor) 250 mg PO BID [facility] Last Admin: 12/27/17 18:10 Dose: 250 mg - Labs Labs: 12/27/17 08:21 12/27/17 08:21 - Head Exam Head Exam: ATRAUMATIC - Eye Exam Eye Exam: Normal appearance - ENT Exam ENT Exam: Mucous Membranes Dry - Respiratory Exam Respiratory Exam: NORMAL BREATHING PATTERN - Cardiovascular Exam Cardiovascular Exam: +S1, +S2 - GI/Abdominal Exam GI & Abdominal Exam: Normal Bowel Sounds Assessment and Plan (1) Anemia Assessment & Plan: w/u consistent with iron deficiency will start IV iron; fibroid uterus noted by imaging f/u hgb electropheresis Status: Acute
--- NOTE | 2017-12-27 23:27 | CARD ---
APPROVED REPORT EXAM: Two-dimensional and M-mode echocardiogram with Doppler and color Doppler. INDICATION Chest Pain ATYPICAL CHEST PAIN, HISTORY DM, Na RISK FACTORS Hypertension 2D DIMENSIONS IVSd1.0 (0.7-1.1cm)LVDd4.4 (3.9-5.9cm) PWd0.9 (0.7-1.1cm)LVDs2.4 (2.5-4.0cm) FS (%) 45.0 %LVEF (%)76.5 (>50%) M-Mode DIMENSIONS RVDd1.98 (2.1-3.2cm)Left Atrium (MM)3.90 (2.5-4.0cm) IVSd1.07 (0.7-1.1cm)Aortic Root2.90 (2.2-3.7cm) LVDd4.65 (4.0-5.6cm)Aortic Cusp Exc.2.08 (1.5-2.0cm) PWd1.11 (0.7-1.1cm)FS (%) 44 % LVDs2.60 (2.0-3.8cm)LVEF (%)75 (>50%) Mitral Valve MV E Bzojennx12.1cm/sMV A Ymurdmep46.5cm/sE/A ratio1.4 TDI E/Lateral E'0.0E/Medial E'0.0 Tricuspid Valve TR Peak [id number]/sTR Peak Gr.[id number] LEFT VENTRICLE The left ventricle is normal size. There is normal left ventricular wall thickness. Left ventricle systolic function is normal. The Ejection Fraction is 50-55%. There is normal LV segmental wall motion. The left ventricular diastolic function is normal. RIGHT VENTRICLE The right ventricle is normal size. There is normal right ventricular wall thickness. The right ventricular systolic function is normal. ATRIA The left atrium size is normal. The right atrium size is normal. The interatrial septum is intact with no evidence for an atrial septal defect. AORTIC VALVE The aortic valve is normal in structure. No aortic regurgitation is present. There is no aortic valvular stenosis. There is no aortic valvular vegetation. MITRAL VALVE The mitral valve is normal in structure. There is no evidence of mitral valve prolapse. There is no mitral valve stenosis. There is no mitral valve regurgitation noted. TRICUSPID VALVE The tricuspid valve is normal in structure. There is mild tricuspid regurgitation. Right ventricular systolic pressure is estimated at 30-40 mmHg. There is mild pulmonary hypertension. PULMONIC VALVE The pulmonic valve is not well visualized. There is mild pulmonic valvular regurgitation. GREAT VESSELS The aortic root is normal in size. PERICARDIAL EFFUSION There is no significant pericardial effusion. <Conclusion> Left ventricle systolic function is normal. The Ejection Fraction is 50-55%. No aortic regurgitation is present. There is no mitral valve regurgitation noted. There is mild tricuspid regurgitation. There is mild pulmonary hypertension. There is mild pulmonic valvular regurgitation.
--- NOTE | 2017-12-28 02:09 | CON ---
DATE: CARDIOLOGY CONSULTATION REQUESTING PHYSICIAN: Dr. Ott from the hospitalist group. LOCATION: She is in room 663, bed A. Requested to see this 37 years old black female due to some atypical chest pain. HISTORY OF PRESENT ILLNESS: This nice young lady has a history of diabetes as well as hypertension, as well as other medical issues, such as sleep apnea, narcolepsy, etc., who came to the emergency room after noticing some upper abdominal pain in the left side which later on radiated to the chest. She had been seen by business initiatives manager for several weeks and prescribed some antacids. On arrival to the emergency room, she underwent multiple investigations and due to the atypical chest pain, Cardiological evaluation requested. Since arrival, she has been relatively stable, although in the emergency room, she vomited several times after drinking the night before, I think a can of beer, something like that she mentioned. She drinks occasionally. At this point in time, she denies any chest pain whatsoever. She does not have any exercise-induced chest pain. REVIEW OF SYSTEMS: From the cardiopulmonary view point, no chest pain at this moment, no shortness of breath, no dizziness, no palpitations. Rest of the review of systems, please refer to the hospitalist group. PHYSICAL EXAMINATION: GENERAL: Reveals moderately obese, black female, very pleasant, in no distress, whatsoever. VITAL SIGNS: Being totally stable since admission here, she was slightly bradycardic at one time which is physiological for age. Blood pressure, respiratory rate, O2 saturation are unremarkable. CARDIOPULMONARY: From the cardiopulmonary view point shows no jugular vein distention, carotids have normal upstroke, precordium is unremarkable, no localized tenderness. Heart sounds normal in intensity and regular. ABDOMEN: Moderately obese, no acute localizing pain except yesterday when they were doing an abdominal ultrasound and she told me when they were pressing on the right subcostal area, she was having some pain perhaps, attributed to some gallbladder disease. LUNGS: The lungs totally clear to auscultation. DOCUMENTATION DESIGNER: Intact. COMPLIMENTARY DATA: From the cardiological view point includes two electrocardiograms normal in my opinion. Chest x-ray was a portable view, no acute cardiopulmonary pathology and an echocardiogram just looked at it, reviewed myself and it is unremarkable in my opinion. The CT of the chest was also done and it showed no evidence of pulmonary embolization. All the investigation that she has had since admission here from the view point shows some thickening in the colon, in the hepatic area that needs to be clarified according to the radiologist as well as the gallbladder appears to have some gallstones and perhaps some edema. A cholecystitis obviously has to be entertained. CARDIOLOGICAL IMPRESSION: Benign cardiological findings. The radiation of the chest pain is not cardiac in etiology too. Cardiac function appears unremarkable for her age. SUGGESTION: No further Cardiology investigation suggestive at this point, obviously the situation with gallbladder, the colon and the hepatic flexure etc needs further evaluation. Serjio Bhatia MD
[2017-12-28] MEDS: metroNIDAZOLE IV 500 mg/100 ml 500 MG/100 ML BAG IVPB SCH ×3 (05:18→21:30)
[2017-12-28 07:45] LABS: ALBUMIN 3.5 g/dL (3.5-5.0); ALT/SGPT 18 U/L (9-52); AST/SGOT 19 U/L (14-36); BLOOD UREA NITROGEN 5 mg/dL (7-17); CALCIUM 8.4 mg/dl (8.6-10.4); GFR AFRICAN-AMERICAN > 60; GFR NON-AFRICAN AMERICAN > 60; MAGNESIUM 1.8 mg/dL (1.6-2.3)
[2017-12-28 08:04] LABS: BASO % 0.5 % (0.0-2.0); EOS # 0.3 K/uL (0.0-0.7); EOS % 6.6 % (0.0-4.0); HEMOGLOBIN 11.9 g/dL (11.0-16.0); LYMPH # 1.9 K/uL (1.0-4.3); LYMPH % 35.9 % (20.0-40.0); MEAN CELL VOLUME 89.7 fL (81.0-99.0); MEAN CORPUSCULAR HEMOGLOBIN 29.7 pg (27.0-31.0); MEAN CORPUSCULAR HGB CONC 33.2 g/dL (33.0-37.0); MEAN PLATELET VOLUME 8.3 fL (7.2-11.7); MONO # 0.6 K/uL (0.0-0.8); NEUT # 2.4 K/uL (1.8-7.0); NRBC % 0.1 % (0.0-2.0); RBC 3.99 Mil/uL (3.80-5.20); RED CELL DISTRIBUTION WIDTH 12.9 % (11.5-14.5); WHITE BLOOD COUNT 5.2 K/uL (4.8-10.8)
[2017-12-28] MEDS: (Novolin R) Insulin Human Regular 100 units/ml vial SC SCH ×4 (08:05→21:30)
[2017-12-28 08:16] LABS: INR 1.1; PROTHROMBIN TIME 13.1 SECONDS (9.7-12.2)
[2017-12-28] MEDS: Saccharomyces Boulardi 250 mg Cap PO SCH ×2 (09:13→17:54)
[2017-12-28] MEDS: Ferric Sodium Gluconat Complex 62.5 mg/5 ml Vial IVPB SCH (09:16)
[2017-12-28] MEDS ORDERED: Bupivacaine-Epi 0.5%-1:200,000 PF Inj IJ ONE (09:34)
[2017-12-28] MEDS ORDERED: Propofol 10 mg/ml Inj (20 ML) ONE (09:41)
[2017-12-28] MEDS ORDERED: Midazolam 2 MG/2 ML VIAL ONE (09:41)
[2017-12-28 09:48] LABS: SQUAMOUS EPITHIAL 6 /hpf (0-5); URINE BACTERIA RARE (<OCC); URINE BILIRUBIN NEGATIVE (NEGATIVE); URINE BLOOD 1+ (NEGATIVE); URINE CLARITY Clear (Clear); URINE COLOR Yellow (YELLOW); URINE GLUCOSE (UA) NORMAL (Normal); URINE LEUKOCYTE ESTERASE TRACE Leu/uL (Negative); URINE NITRATE NEGATIVE (NEGATIVE); URINE PROTEIN NEGATIVE (NEGATIVE); URINE UROBILINOGEN NORMAL mg/dL (0.2-1.0)
--- NOTE | 2017-12-28 10:08 | CP.PCM.PN ---
Subjective - Date & Time of Evaluation Date of Evaluation: 12/28/17 Time of Evaluation: 09:00 - Subjective Subjective: Medicine Note for Hospitalist Service - Dr. Ott Patient was seen and examined at bedside. Patient reports overall she feels well. She only has abdominal pain upon palpation of the RUQ. She is currently NPO for lap scott. Denied, fever, chills, headache, chest pain, SOB, n/v/d/c, or urinary symptoms. Objective - Vital Signs/Intake and Output Vital Signs (last 24 hours): Temp Pulse Resp BP Pulse Ox 98.2 F 61 20 116/75 98 12/28/17 08:10 12/28/17 08:10 12/28/17 08:10 12/28/17 08:10 12/28/17 08:10 - Medications Medications: Current Medications Albuterol/Ipratropium (Duoneb 3 Mg/0.5 Mg (3 Ml) Ud) 3 ml INH RQ6 PRN PRN Reason: Shortness of Breath Last Admin: 12/26/17 04:10 Dose: 3 ml Atenolol (Tenormin) 100 mg PO HS [facility] Last Admin: 12/27/17 21:21 Dose: 100 mg Dextrose (Dextrose 50% Inj) 0 ml IV STAT PRN; Protocol PRN Reason: Hypoglycemia Protocol Dextrose (Glutose 15) 0 gm PO ONCE PRN; Protocol PRN Reason: Hypoglycemia Protocol Docusate Sodium (Colace) 100 mg PO BID [facility] Last Admin: 12/28/17 09:15 Dose: Not Given Famotidine (Pepcid) 20 mg PO DAILY [facility] Last Admin: 12/28/17 09:13 Dose: 20 mg Ferric Sodium Gluconate Complex (Ferrlecit) 125 mg IVPB DAILY [facility] Stop: 01/05/18 10:01 Last Admin: 12/28/17 09:16 Dose: 125 mg Glucagon (Glucagen Diagnostic Kit) 0 mg IM STAT PRN; Protocol PRN Reason: Hypoglycemia Protocol Ceftriaxone Sodium 1 gm/ (Sodium Chloride) 100 mls @ 100 mls/hr IVPB Q24H [facility] Last Admin: 12/27/17 13:20 Dose: 100 mls/hr Dextrose (Dextrose 5% In Water 1000 Ml) 1,000 mls @ 0 mls/hr IV .Q0M PRN; Protocol; Per Protocol PRN Reason: Hypoglycemia Protocol Metronidazole (Flagyl) 500 mg in 100 mls @ 100 mls/hr IVPB Q8 [facility] Last Admin: 12/28/17 05:18 Dose: 100 mls/hr Insulin Human Regular (Novolin R) 0 unit SC ACHS [facility] PRN Reason: Protocol Last Admin: 12/28/17 08:05 Dose: Not Given Losartan Potassium (Cozaar) 100 mg PO DAILY [facility] Last Admin: 12/28/17 09:12 Dose: 100 mg Modafinil (Provigil) 200 mg PO TID [facility] Last Admin: 12/28/17 09:15 Dose: Not Given Ondansetron HCl (Zofran Inj) 4 mg IVP Q6H PRN PRN Reason: Nausea/Vomiting Last Admin: 12/26/17 17:03 Dose: 4 mg Saccharomyces Boulardii (Florastor) 250 mg PO BID [facility] Last Admin: 12/28/17 09:13 Dose: 250 mg - Labs Labs: 12/28/17 07:19 12/28/17 07:25 PT 13.1 SECONDS (9.7-12.2) H 12/28/17 07:52 INR 1.1 12/28/17 07:52 APTT 29 SECONDS (21-34) 12/28/17 07:52 - Constitutional Appears: No Acute Distress - Head Exam Head Exam: NORMAL INSPECTION, NORMOCEPHALIC - Eye Exam Eye Exam: EOMI, Normal appearance, PERRL Pupil Exam: NORMAL ACCOMODATION - ENT Exam ENT Exam: Mucous Membranes Moist, Normal Exam - Respiratory Exam Respiratory Exam: Clear to Ausculation Bilateral, NORMAL BREATHING PATTERN - Cardiovascular Exam Cardiovascular Exam: REGULAR RHYTHM, RRR - GI/Abdominal Exam GI & Abdominal Exam: Soft, Tenderness (TTP RUQ ), Normal Bowel Sounds - Extremities Exam Extremities Exam: Normal Inspection. absent: Pedal Edema, Tenderness - Neurological Exam Neurological Exam: Alert, Awake, Oriented x3 - Psychiatric Exam Psychiatric exam: Normal Affect, Normal Mood - Skin Skin Exam: Dry, Intact, Normal Color, Warm Assessment and Plan - Assessment and Plan (Free Text) Plan: Cholelithiasis Abdominal Pain General Surgery consulted - Dr. Perrin- help appreciated - FOR OR TODAY Hx of H.pylori x 5 years ago Amylase 65 Lipase 23 Hepatitis Panel - negative HIV screen - negative f/u H. pylori Imaging: Abdominal and pelvis CT with PO and IV contrast 12/27/17 - Gallbladder distension. No calcified gallstones identified. Gallbladder wall thickening/ pericholecystic edema. Please note that gallstones evident on ultrasound performed 12/25/17. Recommend clinical correlation possibility of cholecystitis. Marked wall thickening of the colon at the level of the hepatic flexure; correlate clinically for possibility of colitis (i.e. Infectious, inflammatory, ischemic). Diverticulosis without CT evidence of acute diverticulitis. The stomach is nondistended. Wall thickening noted at the level the gastric pylorus likely related to under distention or contraction; correlate clinically. Small pelvic free fluid, may be physiologic. Abdominal US - 1.) Prominent liver with diffuse increased echogenicity of the hepatic parenchymal cortex suggestive for fatty infiltration versus hepatic parenchymal disease. Clinical correlation. 2.) Cholelithiasis. 3.)Somewhat limited evaluation of the pancreas. Transvaginal US - Fibroid uterus. Prominent endometrium measuring up to 1.2 centimeters. Small amount of free fluid within the pelvic cul-de-sac. Chest Pain r/o ACS - resolved Less likely Sickle Cell Crisis Heme/Onc consulted, Dr. Isaak Mendoza Cardio consulted, Dr. Bhatia Trop negative x3, EKG: Julio Cesar - no AV Block Hemoglobinopathy eval f/u Peripheral Smear f/u Hemoglobin Electrophoresis f/u Believed to possibly due to sickle cell crisis since patient's parents both were positive for the sickle cell trait. Brother secondary to sickle cell at age 21. Patient has been worked up for sickle cell in her country Negative. Imaging: Chest CTA - Study somewhat limited secondary to suboptimal contrast timing bolus as well as large field of view and patient motion. No evidence of gross central acute pulmonary embolism. More limited evaluation of the segmental and subsegmental branches. ECHO: LVEF: 55%, mild pulmonary htn, pulmonic valvular regurgitation Morphine 2mg IVP q6h PRN for mod. pain - stopped Morphine 4mg IVP q6h PRN for severe pain - stopped Zofran 4mg IVP q6h PRN NS @150mL/hr x 1 L, then NS @100mL/hr - stopped Asymptomatic Bacteriuria UA - protein 1+, Blood 1+, Nitrates positive, Leuko Olive 1+, Bacteria Occ Urine Culture - E.coli - sensitive to Cipro and Rocephin, f/u repeat UC Meds: Rocephin 1gm IVPB qD Florastor 250mg PO BID T2DM Accuchecks ISS ACHS- high, Metformin 500mg PO daily (held due to IV contrast) HgbA1c - 5.9 HTN Atenolol 100mg daily Losartan 100mg PO daily Narcolepsy Resumed Provigil 200 mg TID;Adderall 30 mg qd and 10 mg TID (total 60mg) - NOT on Formulary Asthma Duonebs 3mL q6h prn Prophylactic Care DVT - score 1 - SCDs only - anticoag not indicated GI - Pepcid 20mg PO daily Heart Healthy, Na+ 2g, Carbohydrate Consistent diet DW Dr. Ott, Gracie John DO, PGY-1
[2017-12-28] MEDS ORDERED: Succinylcholine Chloride 20 mg/ml Syr (5 ml) IV ONE (10:37)
[2017-12-28] MEDS ORDERED: Rocuronium 10 mg/ml (5 ml) ONE (10:37)
[2017-12-28] MEDS ORDERED: Atropine 0.4 mg/ml Inj (1 mL) ONE (11:37)
[2017-12-28] MEDS ORDERED: Neostigmine Methylsulfate 3mg/3ml Syringe IV ONE (11:37)
[2017-12-28] MEDS: HYDROmorphone 0.5 mg/0.5 ml ISec IVP PRN ×4 (12:20→22:37)
--- NOTE | 2017-12-28 12:25 | PCM.SURG1 ---
Surgeon's Initial Post Op Note - Surgeon's Notes Surgeon: Marychuy Biological Scientist: [id number] Type of Anesthesia: General Endo, Local Pre-Operative Diagnosis: Symptomatic Cholelithiasis Operative Findings: see op note Post-Operative Diagnosis: Symptomatic Cholelithiasis Operation Performed: Laparoscopic cholecystectomy Specimen/Specimens Removed: Gallbladder Estimated Blood Loss: EBL {In ML}: 10 Blood Products Given: N/A Drains Used: No Drains Post-Op Condition: Good Date of Surgery/Procedure: 12/28/17 Time of Surgery/Procedure: 10:20
[2017-12-28] MEDS: Lactated Ringer's 1,000 ML IV SCH ×2 (17:54→21:31)
[2017-12-28 18:18] VITALS: RESP 20
--- NOTE | 2017-12-28 23:18 | OP ---
PROCEDURE DATE: 12/28/2017 PREOPERATIVE DIAGNOSIS: Acute cholecystitis and cholelithiasis. POSTOPERATIVE DIAGNOSIS: Acute cholecystitis and cholelithiasis. PROCEDURE PERFORMED: Laparoscopic cholecystectomy. SURGEON: Hola Perrin MD. NUCLEAR LOGGING ENGINEER: . FINDINGS: Gallbladder was markedly distended, thickened wall, was hyperemic, it was purplish red in color, tremendous amount of adhesions were noted in the cholecystoduodenal ligament area in the anterior surface of the gallbladder. Some adhesions were noted in the cystic duct area. DESCRIPTION OF PROCEDURE: Under general anesthesia, the patient was prepared and draped in the usual sterile fashion. CO2 was insufflated. Veress needle inserted in the umbilicus. A 10-mm trocar was then inserted through which the laparoscope was inserted. Under direct vision, a 5-mm epigastric port and a 5-mm right upper quadrant port were inserted. The patient was placed in a reverse Trendelenburg position, turned to the left side slightly. The gallbladder was then grasped at the fundus, the adhesions were taken down. Grasper was placed at the area of the ampulla, traction was applied. Cystic duct and cystic arteries were then isolated. They were transected between Hemoclips. The gallbladder was then removed from the liver bed with electrocautery. The area was irrigated with a large amount of saline solution, irrigating fluid was suctioned out. Gallbladder was extracted through the umbilical port without any problem. CO2 was allowed to escape from the peritoneal cavity. Trocars were removed. The wound was closed in a routine fashion. Estimated blood loss was about 10 mL-15 mL. No complications. Hola Perrin MD
--- NOTE | 2017-12-28 23:33 | CP.PCM.PN ---
Subjective - Date & Time of Evaluation Date of Evaluation: 12/28/17 Time of Evaluation: 13:00 - Subjective Subjective: S/p cholecystectomy Objective - Vital Signs/Intake and Output Vital Signs (last 24 hours): Temp Pulse Resp BP Pulse Ox 98.5 F 55 L 20 124/84 96 12/28/17 15:15 12/28/17 15:15 12/28/17 15:15 12/28/17 15:15 12/28/17 15:15 Intake and Output: 12/28/17 12/29/17 18:59 06:59 Intake Total 1250 800 Output Total 250 Balance 1000 800 - Medications Medications: Current Medications Albuterol/Ipratropium (Duoneb 3 Mg/0.5 Mg (3 Ml) Ud) 3 ml INH RQ6 PRN PRN Reason: Shortness of Breath Last Admin: 12/26/17 04:10 Dose: 3 ml Atenolol (Tenormin) 100 mg PO HS [facility] Last Admin: 12/28/17 21:30 Dose: 100 mg Atropine Sulfate (Atropine) 1 mg IVP ONCE PRN PRN Reason: Bradycardia Last Admin: 12/28/17 12:17 Dose: 1 mg Dextrose (Dextrose 50% Inj) 0 ml IV STAT PRN; Protocol PRN Reason: Hypoglycemia Protocol Dextrose (Glutose 15) 0 gm PO ONCE PRN; Protocol PRN Reason: Hypoglycemia Protocol Docusate Sodium (Colace) 100 mg PO BID [facility] Last Admin: 12/28/17 17:54 Dose: 100 mg Famotidine (Pepcid) 20 mg PO DAILY [facility] Last Admin: 12/28/17 09:13 Dose: 20 mg Ferric Sodium Gluconate Complex (Ferrlecit) 125 mg IVPB DAILY [facility] Stop: 01/05/18 10:01 Last Admin: 12/28/17 09:16 Dose: 125 mg Glucagon (Glucagen Diagnostic Kit) 0 mg IM STAT PRN; Protocol PRN Reason: Hypoglycemia Protocol Hydromorphone HCl (Dilaudid) 0.5 mg IVP Q4H PRN PRN Reason: Pain, moderate (4-7) Last Admin: 12/28/17 22:37 Dose: 0.5 mg Ceftriaxone Sodium 1 gm/ (Sodium Chloride) 100 mls @ 100 mls/hr IVPB Q24H [facility] Last Admin: 12/28/17 11:35 Dose: 100 mls Dextrose (Dextrose 5% In Water 1000 Ml) 1,000 mls @ 0 mls/hr IV .Q0M PRN; Protocol; Per Protocol PRN Reason: Hypoglycemia Protocol Metronidazole (Flagyl) 500 mg in 100 mls @ 100 mls/hr IVPB Q8 [facility] Last Admin: 12/28/17 21:30 Dose: 100 mls/hr Lactated Ringer's (Lactated Ringer's) 1,000 mls @ 100 mls/hr IV .Q10H [facility] Last Admin: 12/28/17 21:31 Dose: Not Given Insulin Human Regular (Novolin R) 0 unit SC ACHS [facility] PRN Reason: Protocol Last Admin: 12/28/17 21:30 Dose: Not Given Losartan Potassium (Cozaar) 100 mg PO DAILY [facility] Last Admin: 12/28/17 09:12 Dose: 100 mg Modafinil (Provigil) 200 mg PO TID [facility] Last Admin: 12/28/17 17:55 Dose: Not Given Ondansetron HCl (Zofran Inj) 4 mg IVP Q6H PRN PRN Reason: Nausea/Vomiting Last Admin: 12/28/17 20:12 Dose: 4 mg Saccharomyces Boulardii (Florastor) 250 mg PO BID [facility] Last Admin: 12/28/17 17:54 Dose: 250 mg - Labs Labs: 12/28/17 07:19 12/28/17 07:25 PT 13.1 SECONDS (9.7-12.2) H 12/28/17 07:52 INR 1.1 12/28/17 07:52 APTT 29 SECONDS (21-34) 12/28/17 07:52 - Head Exam Head Exam: ATRAUMATIC - Eye Exam Eye Exam: Normal appearance - ENT Exam ENT Exam: Mucous Membranes Dry - Respiratory Exam Respiratory Exam: NORMAL BREATHING PATTERN - Cardiovascular Exam Cardiovascular Exam: +S1, +S2 - GI/Abdominal Exam GI & Abdominal Exam: Normal Bowel Sounds Assessment and Plan (1) Anemia Assessment & Plan: iron deficiency; on IV iron f/u hgb electropheresis Status: Acute
[2017-12-29] MEDS: HYDROmorphone 0.5 mg/0.5 ml ISec IVP PRN ×2 (04:20→10:08)
[2017-12-29] MEDS: metroNIDAZOLE IV 500 mg/100 ml 500 MG/100 ML BAG IVPB SCH ×2 (05:39→13:27)
[2017-12-29] MEDS: Lactated Ringer's 1,000 ML IV SCH ×2 (05:44→07:15)
[2017-12-29 06:24] LABS: BASO % 0.2 % (0.0-2.0); EOS # 0.1 K/uL (0.0-0.7); EOS % 1.4 % (0.0-4.0); HEMOGLOBIN 10.3 g/dL (11.0-16.0); LYMPH # 1.3 K/uL (1.0-4.3); MEAN CELL VOLUME 88.9 fL (81.0-99.0); MEAN CORPUSCULAR HEMOGLOBIN 29.4 pg (27.0-31.0); MEAN PLATELET VOLUME 8.2 fL (7.2-11.7); MONO # 0.8 K/uL (0.0-0.8); MONO % 10.6 % (0.0-10.0); NEUT # 5.5 K/uL (1.8-7.0); NEUT % 70.8 % (50.0-75.0); RBC 3.52 Mil/uL (3.80-5.20); RED CELL DISTRIBUTION WIDTH 12.8 % (11.5-14.5); WHITE BLOOD COUNT 7.8 K/uL (4.8-10.8)
--- NOTE | 2017-12-29 07:32 | CP.PCM.DIS ---
Provider - Provider Date of Admission: 12/27/17 13:54 Attending physician: Charity Ott DO Time Spent in preparation of Discharge (in minutes): 55 Hospital Course - Lab Results Lab Results: Micro Results 12/25/17 11:10 Urine,Clean Catch Urine Culture - Final Escherichia Coli Most Recent Lab Values WBC 7.8 K/uL (4.8-10.8) 12/29/17 06:13 RBC 3.52 Mil/uL (3.80-5.20) L 12/29/17 06:13 Hgb 10.3 g/dL (11.0-16.0) L 12/29/17 06:13 Hct 31.3 % (34.0-47.0) L 12/29/17 06:13 MCV 88.9 fL (81.0-99.0) 12/29/17 06:13 MCH 29.4 pg (27.0-31.0) 12/29/17 06:13 MCHC 33.0 g/dL (33.0-37.0) 12/29/17 06:13 RDW 12.8 % (11.5-14.5) 12/29/17 06:13 Plt Count 239 K/uL (130-400) 12/29/17 06:13 MPV 8.2 fL (7.2-11.7) 12/29/17 06:13 Neut % (Auto) 70.8 % (50.0-75.0) 12/29/17 06:13 Lymph % (Auto) 17.0 % (20.0-40.0) L 12/29/17 06:13 [place] % (Auto) 10.6 % (0.0-10.0) H 12/29/17 06:13 Eos % (Auto) 1.4 % (0.0-4.0) 12/29/17 06:13 Baso % (Auto) 0.2 % (0.0-2.0) 12/29/17 06:13 Neut # (Auto) 5.5 K/uL (1.8-7.0) 12/29/17 06:13 Lymph # (Auto) 1.3 K/uL (1.0-4.3) 12/29/17 06:13 [place] # (Auto) 0.8 K/uL (0.0-0.8) 12/29/17 06:13 Eos # (Auto) 0.1 K/uL (0.0-0.7) 12/29/17 06:13 Baso # (Auto) 0.0 K/uL (0.0-0.2) 12/29/17 06:13 Retic Count 1.0 % (0.5-1.5) 12/27/17 08:21 Sickle Cell Screen Negative (NEGATIVE) 12/26/17 11:11 Hemoglobin A 96.7 Percent (>96.0) 12/25/17 12:49 Hemoglobin A2 2.3 Percent (1.8-3.5) 12/25/17 12:49 Hemoglobin C 0.0 Percent (0.0-0.0) 12/25/17 12:49 Hemoglobin F () <1.0 Percent (<2.0) 12/25/17 12:49 Hemoglobin S 0.0 Percent (0.0-0.0) 12/25/17 12:49 Variant Hemoglobin 0.0 Percent (0.0-0.0) 12/25/17 12:49 Hemoglobinopathy Red Blood Count 3.93 Mill/mcL (3.80-5.10) 12/25/17 12:49 Hemoglobinopathy Hct 35.5 % (35.0-45.0) 12/25/17 12:49 Hemoglobinopathy Hgb 11.3 g/dL (11.7-15.5) L 12/25/17 12:49 Hemoglobinopathy MCV 90.4 fL (80.0-100.0) 12/25/17 12:49 Hemoglobinopathy MCH 28.8 pg (27.0-33.0) 12/25/17 12:49 Hemoglobinopathy RDW 12.9 % (11.0-15.0) 12/25/17 12:49 Hemoglobinopathy Interp See note 12/25/17 12:49 PT 13.1 SECONDS (9.7-12.2) H 12/28/17 07:52 INR 1.1 12/28/17 07:52 APTT 29 SECONDS (21-34) 12/28/17 07:52 D-Dimer, Quantitative 411 ng/mlDDU (0-243) H 12/25/17 06:33 Sodium 138 mmol/L (132-148) 12/28/17 07:25 Potassium 4.0 mmol/L (3.6-5.2) 12/28/17 07:25 Chloride 104 mmol/L (98-107) 12/28/17 07:25 Carbon Dioxide 25 mmol/L (22-30) 12/28/17 07:25 Anion Gap 13 (10-20) 12/28/17 07:25 BUN 5 mg/dL (7-17) L 12/28/17 07:25 Creatinine 0.6 mg/dL (0.7-1.2) L 12/28/17 07:25 Est GFR ( Amer) > 60 12/28/17 07:25 Est GFR (Non-Af Amer) > 60 12/28/17 07:25 POC Glucose (mg/dL) 118 mg/dL (65-110) H 12/29/17 06:35 Random Glucose 109 mg/dL (65-105) H 12/28/17 07:25 Hemoglobin A1c 5.9 % (4.2-6.5) 12/26/17 08:02 Lactic Acid 1.2 mmol/L (0.7-2.1) 12/25/17 12:49 Calcium 8.4 mg/dl (8.6-10.4) L 12/28/17 07:25 Phosphorus 3.4 mg/dL (2.5-4.5) 12/28/17 07:25 Magnesium 1.8 mg/dL (1.6-2.3) 12/28/17 07:25 Ferritin 25.9 ng/mL 12/27/17 08:21 Total Bilirubin 0.3 mg/dL (0.2-1.3) 12/28/17 07:25 AST 19 U/L (14-36) 12/28/17 07:25 ALT 18 U/L (9-52) 12/28/17 07:25 Alkaline Phosphatase 78 U/L (38-126) 12/28/17 07:25 Troponin I < 0.0120 ng/mL (0.00-0.120) 12/25/17 16:23 Total Protein 7.1 g/dL (6.3-8.3) 12/28/17 07:25 Albumin 3.5 g/dL (3.5-5.0) 12/28/17 07:25 Globulin 3.6 gm/dL (2.2-3.9) 12/28/17 07:25 Albumin/Globulin Ratio 1.0 (1.0-2.1) 12/28/17 07:25 Triglycerides 58 mg/dL (0-149) 12/26/17 08:02 Cholesterol 158 mg/dL (0-199) 12/26/17 08:02 LDL Cholesterol Direct 80 mg/dL (0-129) 12/26/17 08:02 HDL Cholesterol 46 mg/dL (30-70) 12/26/17 08:02 Amylase 65 U/L (30-110) 12/25/17 11:31 Lipase 23 U/L (23-300) 12/25/17 11:31 Vitamin B12 656 pg/mL (239-931) 12/27/17 08:21 Folate 10.1 ng/mL 12/27/17 08:21 Free T4 0.83 ng/dL (0.78-2.19) 12/26/17 08:02 TSH 3rd Generation 0.35 mIU/L (0.46-4.68) L 12/26/17 08:02 Beta HCG, Quant < 2.39 mIU/ML 12/25/17 07:47 Urine Color Yellow (YELLOW) 12/28/17 09:13 Urine Clarity Clear (Clear) 12/28/17 09:13 Urine pH 6.0 (5.0-8.0) 12/28/17 09:13 Ur Specific [place] 1.014 (1.003-1.030) 12/28/17 09:13 Urine Protein Negative mg/dL (NEGATIVE) 12/28/17 09:13 Urine Glucose (UA) Normal mg/dL (Normal) 12/28/17 09:13 Urine Ketones Negative mg/dL (NEGATIVE) 12/28/17 09:13 Urine Blood 1+ (NEGATIVE) H 12/28/17 09:13 Urine Nitrate Negative (NEGATIVE) 12/28/17 09:13 Urine Bilirubin Negative (NEGATIVE) 12/28/17 09:13 Urine Urobilinogen Normal mg/dL (0.2-1.0) 12/28/17 09:13 Ur Leukocyte Esterase Trace [place]/uL (Negative) 12/28/17 09:13 Urine WBC (Auto) 1 /hpf (0-5) 12/28/17 09:13 Urine RBC (Auto) 2 /hpf (0-3) 12/28/17 09:13 Ur Squamous Epith Cells 6 /hpf (0-5) H 12/28/17 09:13 Urine Bacteria Rare (<OCC) 12/28/17 09:13 Urine HCG, Qual Negative (NEGATIVE) 12/28/17 07:03 Stool H. pylori Ag Detected (Not Detected) H 12/26/17 15:39 Alcohol, Quantitative < 10 mg/dl (0-10) 12/25/17 11:31 H. pylori Source Stool 12/26/17 15:39 Hepatitis A IgM Ab Negative (NEGATIVE) 12/26/17 08:02 Hep Bs Antigen Negative (NEGATIVE) 12/26/17 08:02 Hep B Core IgM Ab Negative (NEGATIVE) 12/26/17 08:02 Hepatitis C Antibody Negative (NEGATIVE) 12/26/17 08:02 HIV 1&2 Antibody Screen Negative (NEGATIVE) 12/26/17 08:02 Influenza Typ A,B (EIA) Negative for flu a/b (NEGATIVE) 12/25/17 15:34 - Hospital Course Hospital Course: Upon Admission: CC: Abdominal, chest, and back pain A 37 year old AA female with a PMH of DM2, HTN, Narcolepsy, and Asthma, and possible SCT or SCD presents to the ED today morning with abdominal pain radiating to her chest and back. The patient states that she woke up at 4am with abdominal and chest pain that was unlike ever before. She states that on Tuesday, the pain was worsening and by Tuesday it was at it's worst, coming and going intermittently. She states that she's had abdominal pain for months and has been seeing a GI doctor, Dr. Briones, for it who gave her Zantac and scheduled for an EGD soon. The patient states that she drank 1/2 cup of Guinness on Tuesday afternoon and that it may have prompted her worsening abdominal pain. She describes her abdominal pain as "her stomach eating itself" , and currently her pain is an 8/10 from a 10/10 from onset at 4am. She also describes an associated dyspnea when she lays down that does not get better with different positioning. She states that she last used her Albuterol last night due to her SOB when laying down. The patient has come to [facility] before for similar episodes but does not remember her work up for diagnosis. Her last bowel movement was last night, and she was able to eat 3 meals on Tuesday and states that she took all her medications Tuesday night. On ROS, she admits to sleep changes secondary to pain, SOB, palpitations (this morning) , orthopnea, chest pain, decrease in appetite, vomiting (secondary to oral contrast given in ED), diffuse abdominal pain, urinary frequency, urinary urgency, joint pains (bilateral knees and elbows), and dizziness. She denies headache, vision/hearing changes, cough, diarrhea, constipation, rashes, polyuria, depression or anxiety. US in the ED showed gallstones. 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 Call [facility] ) and [facility] ) Adderall 30 mg qd and 10 mg TID (total 60mg) Zantac PO qd Ambien 10 mg qd Albuterol PRN (last used Tuesday night, uses it on a monthly basis) Provigil 200 mg TID Metformin 500 BID Atenolol 100 mg qd Hyzaar qd Throughout Hospital Course: Patient was admitted for chest pain r/o ACS and abdominal pain. Cholelithiasis Abdominal Pain General Surgery consulted - Dr. Perrin- help appreciated - lap cholecystomy. No antibiotics home, she is to follow up in 1 week for routine post op check. Hx of H.pylori x 5 years ago Amylase 65 Lipase 23 Hepatitis Panel - negative HIV screen - negative H. pylori - + - will be discharged with antibiotic regimen. Imaging: Abdominal and pelvis CT with PO and IV contrast 12/27/17 - Gallbladder distension. No calcified gallstones identified. Gallbladder wall thickening/ pericholecystic edema. Please note that gallstones evident on ultrasound performed 12/25/17. Recommend clinical correlation possibility of cholecystitis. Marked wall thickening of the colon at the level of the hepatic flexure; correlate clinically for possibility of colitis (i.e. Infectious, inflammatory, ischemic). Diverticulosis without CT evidence of acute diverticulitis. The stomach is nondistended. Wall thickening noted at the level the gastric pylorus likely related to under distention or contraction; correlate clinically. Small pelvic free fluid, may be physiologic. Abdominal US - 1.) Prominent liver with diffuse increased echogenicity of the hepatic parenchymal cortex suggestive for fatty infiltration versus hepatic parenchymal disease. Clinical correlation. 2.) Cholelithiasis. 3.)Somewhat limited evaluation of the pancreas. Transvaginal US - Fibroid uterus. Prominent endometrium measuring up to 1.2 centimeters. Small amount of free fluid within the pelvic cul-de-sac. Chest Pain r/o ACS - resolved Less likely Sickle Cell Crisis Heme/Onc consulted, Dr. Isaak Mendoza Cardio consulted, Dr. Bhatia Trop negative x3, EKG: Julio Cesar - no AV Block Hemoglobinopathy eval f/u Peripheral Smear f/u Hemoglobin Electrophoresis f/u Believed to possibly due to sickle cell crisis since patient's parents both were positive for the sickle cell trait. Brother secondary to sickle cell at age 21. Patient has been worked up for sickle cell in her country Negative. Imaging: Chest CTA - Study somewhat limited secondary to suboptimal contrast timing bolus as well as large field of view and patient motion. No evidence of gross central acute pulmonary embolism. More limited evaluation of the segmental and subsegmental branches. ECHO: LVEF: 55%, mild pulmonary htn, pulmonic valvular regurgitation Morphine 2mg IVP q6h PRN for mod. pain - stopped Morphine 4mg IVP q6h PRN for severe pain - stopped Zofran 4mg IVP q6h PRN NS @150mL/hr x 1 L, then NS @100mL/hr - stopped Asymptomatic Bacteriuria UA - protein 1+, Blood 1+, Nitrates positive, Leuko Olive 1+, Bacteria Occ Urine Culture - E.coli - sensitive to Cipro and Rocephin Meds: Rocephin 1gm IVPB qD Florastor 250mg PO BID T2DM Accuchecks ISS ACHS- high, Metformin 500mg PO daily (held due to IV contrast) HgbA1c - 5.9 HTN Atenolol 100mg daily Losartan 100mg PO daily Narcolepsy Resumed Provigil 200 mg TID;Adderall 30 mg qd and 10 mg TID (total 60mg) - NOT on Formulary Asthma Duonebs 3mL q6h prn Please review EMR for full record. This is a brief summary of the patient's hospital course. Discharge Exam - Head Exam Head Exam: ATRAUMATIC, NORMAL INSPECTION, NORMOCEPHALIC - Eye Exam Eye Exam: Normal appearance - ENT Exam ENT Exam: Mucous Membranes Moist - Respiratory Exam Respiratory Exam: Clear to PA & Lateral, NORMAL BREATHING PATTERN. absent: Decreased Breath Sounds - Cardiovascular Exam Cardiovascular Exam: REGULAR RHYTHM, RRR, +S1, +S2 - GI/Abdominal Exam GI & Abdominal Exam: Normal Bowel Sounds, Soft. absent: Distended, Tenderness Additional comments: dressing c/d/i/ - Extremities Exam Extremities exam: normal inspection, pedal pulses present - Neurological Exam Neurological exam: Alert, CN II-XII Intact, Oriented x3 - Psychiatric Exam Psychiatric exam: Normal Affect, Normal Mood - Skin Skin Exam: Dry, Intact, Normal Color, Warm Discharge Plan - Discharge Medications Prescriptions: Ferrous Sulfate 325 mg PO DAILY #30 tablet - Follow Up Plan Condition: STABLE Disposition: HOME/ ROUTINE Additional Instructions: You can resume all your home medications as you were taking. You have iron deficiency anemia so you were provided a script for ferrous sulfate (iron) 325mg by mouth daily. This may make you constipated, please hydrate yourself, eat foods high in fiber. You have H.Pylori - you will need to take the following antibiotic regimen for 14 days and continue taking the PPI for total 6 weeks. Please follow up with Dr. Perrin, the surgeon who performed the laproscopic cholecystectomy for a routine post operative check. -Clear to shower and remove dressings on 12/30/17 -Steri strips will remain in place and will fall off on their own in a week or so -no heavy lifting for 2 weeks Thank you! Please take care. Referrals: Hola Perrin MD [Staff Provider] - Isaak Mendoza MD [Staff Provider] -
[2017-12-29] MEDS: (Novolin R) Insulin Human Regular 100 units/ml vial SC SCH ×2 (08:00→12:28)
[2017-12-29 08:46] VITALS: BP 115/67; PULSE 69; TEMP 98.3; O2SAT 96
--- NOTE | 2017-12-29 08:50 | CP.PCM.PN ---
Subjective - Date & Time of Evaluation Date of Evaluation: 12/29/17 Time of Evaluation: 08:48 - Subjective Subjective: General Surgery: Dr Perrin Pt S&E. POD#1 s/p jihan chavez. Pt doing well. Pain well controlled. tolerating diet. Post op instructions provided at bedside Objective - Vital Signs/Intake and Output Vital Signs (last 24 hours): Temp Pulse Resp BP Pulse Ox 98.3 F 69 20 115/67 96 12/29/17 08:45 12/29/17 08:45 12/29/17 08:45 12/29/17 08:45 12/29/17 08:45 Intake and Output: 12/29/17 12/29/17 06:59 18:59 Intake Total 1700 Balance 1700 - Medications Medications: Current Medications Albuterol/Ipratropium (Duoneb 3 Mg/0.5 Mg (3 Ml) Ud) 3 ml INH RQ6 PRN PRN Reason: Shortness of Breath Last Admin: 12/26/17 04:10 Dose: 3 ml Atenolol (Tenormin) 100 mg PO HS [facility] Last Admin: 12/28/17 21:30 Dose: 100 mg Atropine Sulfate (Atropine) 1 mg IVP ONCE PRN PRN Reason: Bradycardia Last Admin: 12/28/17 12:17 Dose: 1 mg Dextrose (Dextrose 50% Inj) 0 ml IV STAT PRN; Protocol PRN Reason: Hypoglycemia Protocol Dextrose (Glutose 15) 0 gm PO ONCE PRN; Protocol PRN Reason: Hypoglycemia Protocol Docusate Sodium (Colace) 100 mg PO BID [facility] Last Admin: 12/28/17 17:54 Dose: 100 mg Famotidine (Pepcid) 20 mg PO DAILY [facility] Last Admin: 12/28/17 09:13 Dose: 20 mg Ferric Sodium Gluconate Complex (Ferrlecit) 125 mg IVPB DAILY [facility] Stop: 01/05/18 10:01 Last Admin: 12/28/17 09:16 Dose: 125 mg Glucagon (Glucagen Diagnostic Kit) 0 mg IM STAT PRN; Protocol PRN Reason: Hypoglycemia Protocol Hydromorphone HCl (Dilaudid) 0.5 mg IVP Q4H PRN PRN Reason: Pain, moderate (4-7) Last Admin: 12/29/17 04:20 Dose: 0.5 mg Ceftriaxone Sodium 1 gm/ (Sodium Chloride) 100 mls @ 100 mls/hr IVPB Q24H [facility] Last Admin: 12/28/17 11:35 Dose: 100 mls Dextrose (Dextrose 5% In Water 1000 Ml) 1,000 mls @ 0 mls/hr IV .Q0M PRN; Protocol; Per Protocol PRN Reason: Hypoglycemia Protocol Metronidazole (Flagyl) 500 mg in 100 mls @ 100 mls/hr IVPB Q8 [facility] Last Admin: 12/29/17 05:39 Dose: 100 mls/hr Lactated Ringer's (Lactated Ringer's) 1,000 mls @ 100 mls/hr IV .Q10H [facility] Last Admin: 12/29/17 05:44 Dose: 100 mls/hr Insulin Human Regular (Novolin R) 0 unit SC ACHS [facility] PRN Reason: Protocol Last Admin: 12/28/17 21:30 Dose: Not Given Losartan Potassium (Cozaar) 100 mg PO DAILY [facility] Last Admin: 12/28/17 09:12 Dose: 100 mg Modafinil (Provigil) 200 mg PO TID [facility] Last Admin: 12/28/17 17:55 Dose: Not Given Ondansetron HCl (Zofran Inj) 4 mg IVP Q6H PRN PRN Reason: Nausea/Vomiting Last Admin: 12/28/17 20:12 Dose: 4 mg Saccharomyces Boulardii (Florastor) 250 mg PO BID [facility] Last Admin: 12/28/17 17:54 Dose: 250 mg - Labs Labs: 12/29/17 06:13 12/28/17 07:25 PT 13.1 SECONDS (9.7-12.2) H 12/28/17 07:52 INR 1.1 12/28/17 07:52 APTT 29 SECONDS (21-34) 12/28/17 07:52 - Constitutional Appears: Non-toxic, No Acute Distress - ENT Exam ENT Exam: Mucous Membranes Moist - Respiratory Exam Respiratory Exam: absent: Accessory Muscle Use, Respiratory Distress - Cardiovascular Exam Cardiovascular Exam: REGULAR RHYTHM. absent: Tachycardia - GI/Abdominal Exam GI & Abdominal Exam: Soft. absent: Distended, Firm, Guarding, Tenderness Additional comments: incisions c/d/i - Neurological Exam Neurological Exam: Alert, Awake, Oriented x3 - Psychiatric Exam Psychiatric exam: Normal Affect, Normal Mood - Skin Skin Exam: Normal Color, Warm Assessment and Plan - Assessment and Plan (Free Text) Assessment: 37F POD#1 s/p lap scott Plan: clear for d/c from surgery no abx required f/u in office in 1 week d/w Dr Marychuy Roland, PGY3
[2017-12-29] MEDS: Ferric Sodium Gluconat Complex 62.5 mg/5 ml Vial IVPB SCH (09:59)
[2017-12-29] MEDS: Saccharomyces Boulardi 250 mg Cap PO SCH (10:00)
[2017-12-29 11:25] LABS: ALBUMIN 3.2 g/dL (3.5-5.0); ALT/SGPT 39 U/L (9-52); AST/SGOT 37 U/L (14-36); BLOOD UREA NITROGEN 5 mg/dL (7-17); CALCIUM 8.6 mg/dl (8.6-10.4); GFR AFRICAN-AMERICAN > 60; GFR NON-AFRICAN AMERICAN > 60; MAGNESIUM 1.7 mg/dL (1.6-2.3)
--- NOTE | 2017-12-29 23:00 | CARD ---
APPROVED REPORT EKG Measurement Heart [id number] <Conclusion> Sinus bradycardia Otherwise normal ECG
== END 2017-12-29 16:28 | disposition home or self-care (01) | DRG 493 ==
LOC: C.ER 05:26 → C.9E 10:51 → C.6T 12-26 13:14 → OBSVTOIN 12-27 13:54
PROVIDERS: ADMIT Hospitalist; ATTEND Hospitalist
PROC: 0FT44ZZ Resection of Gallbladder, Percutaneous Endoscopic Approach (ICD-10-PCS; principal; 2017-12-28 13:00)
DX: K80.12 Calculus of gallbladder with acute and chronic cholecystitis without obstruction (principal); N39.0 Urinary tract infection, site not specified; I27.20 Pulmonary hypertension, unspecified; E11.9 Type 2 diabetes mellitus without complications; G47.30 Sleep apnea, unspecified; D25.9 Leiomyoma of uterus, unspecified; B96.20 Unspecified Escherichia coli [E. coli] as the cause of diseases classified elsewhere; I10 Essential (primary) hypertension; I37.1 Nonrheumatic pulmonary valve insufficiency; G47.419 Narcolepsy without cataplexy; K57.90 Diverticulosis of intestine, part unspecified, without perforation or abscess without bleeding; J35.01 Chronic tonsillitis; J45.909 Unspecified asthma, uncomplicated; K82.8 Other specified diseases of gallbladder; R79.1 Abnormal coagulation profile; Z87.440 Personal history of urinary (tract) infections